=== PATIENT | female | born 1930 | race Caucasian/White ===

== ENCOUNTER 2019-01-12 11:03 | Inpatient (IN) ==
[2019-01-16] MEDS ORDERED: Acetaminophen 325 MG TABLET PO PRN (16:45)
[2019-01-16] MEDS ORDERED: Mag Hydrox/Al Hydrox/Simeth 30 ML UDC PO PRN (16:49)
[2019-01-16] MEDS: *HR* Rivaroxaban 15 MG TABLET PO SCH (19:06)
[2019-01-16] MEDS: Metoprolol XL (24 HR) Succ 50 MG TAB.ER.24H PO SCH (19:06)
[2019-01-16] MEDS: cephALEXin 500 MG CAPSULE PO SCH (20:51)
[2019-01-17 06:40] LABS: Basophils # 0.1 K/mcL (0.0-0.2); Basophils % 1.3 %; Eosinophils # 0.2 K/mcL (0.0-0.6); Eosinophils % 2.9 %; Hematocrit 44.1 % (35.3-44.9); Hemoglobin 14.7 g/dL (11.5-15.4); Immature Granulocytes % 0.3 % (0-4); Lymphocytes # 1.2 K/mcL (0.6-4.6); Mean Corpuscular HGB Conc 33.3 g/dL (31.6-35.5); Mean Corpuscular Hemoglobin 31.4 pg (28.0-33.3); Mean Corpuscular Volume 94.2 fL (83.0-100.0); Mean Platelet Volume 10.4 fL (9.4-12.4); Monocytes # 0.6 K/mcL (0.0-1.3); Monocytes % 9.4 %; Neutrophils # 4.1 K/mcL (1.6-8.9); Platelet Count 238 K/mcL (140-400); Red Blood Count 4.68 M/mcL (3.82-4.97); Red Cell Distribution Width 12.3 % (11.5-14.5); Segmented Neutrophils % 66.1 %
[2019-01-17 06:48] LABS: Alanine Aminotransferase 11 Units/L (7-52); Albumin 3.2 g/dL (3.5-5.7); Albumin/Globulin Ratio 0.9 (1.1-2.2); Alkaline Phosphatase 55 Units/L (34-104); Aspartate Amino Transferase 18 Units/L (13-39); BUN/Creatinine Ratio 17 (6-26); Bilirubin,Total 0.8 mg/dL (0.3-1.0); Blood Urea Nitrogen 18 mg/dL (8-23); Calcium 9.1 mg/dL (8.6-10.3); Carbon Dioxide 26 mEq/L (23-29); Chloride 106 mEq/L (98-107); Globulin 3.4 g/dL (2.4-3.5); Glucose 104 mg/dL (70-105); Osmolality,Calculated 288 (280-300); Potassium 4.3 mEq/L (3.5-5.1); Sodium 138 mEq/L (136-145); Total Protein 6.6 g/dL (6.4-8.9); eGFR For Non-African Americans 51 (> 60)
[2019-01-17] MEDS: Aspirin Enteric Coated 81 MG Tablet PO SCH (08:58)
[2019-01-17] MEDS: Diltiazem CD (24hr) 120 MG CAPSULE PO SCH (08:58)
[2019-01-17] MEDS: cephALEXin 500 MG CAPSULE PO SCH ×2 (08:58→20:27)
--- NOTE | 2019-01-17 13:32 | Internal Med History&Physical ---
Addendum entered and electronically signed by Beto Cruz MD 01/17/19 13:39: I have personally performed a face to face evaluation on this patient. I have r eviewed and agree with the care plan. History and Exam by me shows: Reviewed her course with her. She thinks that the stroke symptoms were about 3 days ago largely improved. She states that the stroke has affected her memory and vision. She is upset that she did not realize she was having a stroke. However, her weakness of left upper and lower extremities have improved markedly since her initial stroke. Visual changes have not. Have discussed with therapy, nursing, psychology. She may benefit from an antidepressant. Patient has no complaint of chest discomfort, dyspnea, orthopnea, breathing problems, palpitations, nausea or vomiting, constipation or diarrhea, other changes in bowel habits, heartburn, difficulty with urination, kidney problems or kidney stones, fevers chills or sweats, rash or itching, seizures, headache or lightheadedness, heat or cold intolerance, blood problems or anemia, or other new complaints, except as mentioned above. Review of systems is otherwise negative. Examination: (Except as mentioned above): General: In no apparent distress, alert and oriented 3. Head: Atraumatic and normocephalic. Eyes: Extraocular muscles are intact, pupils equal round and reactive to light and accommodation. Sclerae anicteric. Ears: External ears are normal to inspection and hearing is grossly normal. Nose: Patent without lesion noted. Mouth: No intraoral lesions seen. Dentition is unremarkable. Neck: Supple with trachea midline. There is no thyromegaly or adenopathy and carotids are 2+ without bruit heard. Respiratory: No use of accessory muscles. Lungs are clear throughout. Normal airflow. Cardiovascular: Regular rate and rhythm without murmur appreciated. Abdomen: Bowel sounds are normal. No hepatosplenomegaly masses or tenderness. Obese and therefore difficult to palpate deeply. Extremities: No cyanosis clubbing or edema. Neurological: A and O 3. Cranial nerves II through XII are intact. No focal motor deficits and no abnormal movements or postures. However, she has a left facial field cut which is pronounced and with it some agnosia. Skin: Warm and non-diaphoretic with no lesions noted. Breasts, pelvic and rectal: Not examined. I agree that her ophthalmology should be consulted because of her visual field changes. She will need several weeks of therapy, based on current assessment. Original Note: Date of Encounter: 01/17/19 Time of Encounter: 13:24 Assessment and Plan (1) CVA (cerebral vascular accident) Current visit: Yes Status: Acute PT, OT and ST to eval and treat. Will follow progress. Follow up with neurology as scheduled. Continue xarelto, asa and crestor. 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 continue xarelto, metoprolol and cardizem. Qualifiers: Atrial fibrillation type: chronic Qualified Code(s): I48.2 - Chronic atrial fibrillation Internal Medicine - H&P: HPI Admitted From: Hospital to Hospital Transfer Plans for Post Hospital Care: Home History of present illness: Ms. Hernandez is a 88 year old female admitted to inpatient rehab unit s/p bilat CVA. Patient was transferred from [facility] after arriving on 01/09/2019 with left-sided weakness, numbness, Tatum the shows an wobbly gait. Patient was not a candidate for TPA, due to symptoms improving. Tele stroke consult was performed with [facility]. Was found to have infarcts involving medial right occipital lobe, right thalamus, left lentiform nucleus, left cerebellum and right hippocampus Past medical history includes a fib with chronic anticoagulation, xarelto, and sinusitis. pt has left sided visual cut. Denies any new neurological deficits. Denies fever, chills, nausea vomiting or diarrhea. Denies headache, shortness of breath or chest pain. Patient is continent of bowel and bladder. Maintaining a ppetite and hydration. Prior to admission patient lived alone and was independent with all ADLs as well as driving. Past Med Surg Social Fam HX - Past Medical History Medical history: atrial fibrillation, CVA, TIA Additional medical history: uti Psychiatric history: no psych history - Past Surgical History Surgical History: no surgical history - Social History Smoking Status: Never smoker Smokeless Tobacco Status: No Alcohol use: none Drug use: none - Family History Mother Living Status: Hx Family Cardiac Disorders: No Hx Family Neurologic Disorders: No Father Living Status: Hx Family Cardiac Disorders: No Hx Family Neurologic Disorders: No Internal Medicine - H&P: Meds Metoprolol Succinate [Toprol Xl] 100 mg PO QPM 01/06/19 [History] Aspirin Enteric Coated [Aspirin EC] 81 mg PO DAILY 30 Days #30 tablet. 01/15/19 [Rx] Diltiazem CD (24hr) [Cardizem CD] 120 mg PO DAILY 30 Days #30 cap.er.24h 01/15/19 [Rx] Rivaroxaban [Xarelto] 15 mg PO 1700 30 Days #30 tablet 01/15/19 [Rx] Rosuvastatin [Crestor] 20 mg PO HS 30 Days #30 tablet 01/15/19 [Rx] Allergy/AdvReac Type Severity Reaction Status Date / Time nitrofurantoin Allergy Difficulty Verified 01/06/19 12:59 [From Macrodantin] Breathing All Systems PM: A 10-system review of systems was performed and is negative for pertinent findings except as documented above in the HPI. - Constitutional Constitutional: no chills, no fever(s), no night sweats - EENT Eyes: no change in vision, no discharge, no pain, no photophobia Ears: no ear discharge, no ear pain, no tinnitus Nose, mouth and throat: no dysphagia, no nasal discharge, no neck pain, no sore throat - Cardiovascular Cardiovascular ROS IM: no chest pain, no diaphoresis, no dyspnea, no lightheadedness, no palpitations, no syncope - Respiratory Respiratory: no cough, no dyspnea, no wheezing, no excessive phlegm production - Gastrointestinal Gastrointestinal: no abdominal pain, no diarrhea, no hematemesis, no hematochezia, no melena, no nausea, no vomiting - Genitourinary Genitourinary: no change in urinary stream, no dysuria, no flank pain, no hematuria - Musculoskeletal Musculoskeletal ROS IM: no numbness, no tingling - Integumentary Integumentary IM: no rash, no unusual bruising - Neurological Neurological ROS: no confusion, no convulsions, no focal weakness, no numbness, no tingling, no tremor(s) - Hematologic/Lymphatic Hematologic/Lymphatic: no easy bruising - Constitutional Vitals: Temp Pulse Resp BP Pulse Ox 97.6 F 93 18 126/67 96 03/06/19 07:32 01/17/19 07:32 01/17/19 07:32 01/17/19 07:32 01/17/19 07:32 General appearance: Present: cooperative, A&O X 3, pleasant, no acute distress, answers questions appropriately - Head Head exam: Present: atraumatic, normocephalic - Eye Eye exam: Present: PERRL, conjuntiva pink, sclera anicteric Pupils: Present: PERRL - Neck Neck exam general surgery: Present: supple, trachea midline. Absent: lymphadenopathy - Respiratory Respiratory exam: Present: CTAB. Absent: accessory muscle use, rales, rhonchi, wheezes - Cardiovascular Cardiovascular exam: Present: irregular rhythm, +S1, +S2. Absent: diastolic murmur, gallop, rubs, systolic murmur - GI/Abdominal GI/Abdominal exam: Present: normal bowel sounds, soft, no peritoneal signs. Absent: distended, tenderness - Extremities Exam Extremities exam: Present: warm, radial pulses palpable and symmetrical. Absent: calf tenderness, cyanotic, pedal edema - Neurological Exam Neurological exam: Present: CN II-XII intact, oriented X3, no focal deficits, strengths equal and symetr throughout. Absent: pronater drift, facial droop, speech deficit Additional comments: Left-sided visual cut - Skin Skin exam: Present: dry, intact Internal Med - H&P Results - Labs CBC & Chem 7: 01/17/19 05:55 01/17/19 05:55 Labs: Short CBC 01/17/19 Range/Units 05:55 WBC 6.2 (4.3-11.1) K/mcL Hgb 14.7 (11.5-15.4) g/dL Hct 44.1 (35.3-44.9) % Plt Count 238 (140-400) K/mcL Neutrophils # 4.1 (1.6-8.9) K/mcL BMP 01/17/19 05:55 Sodium 138 Potassium 4.3 Chloride 106 Carbon Dioxide 26 BUN 18 Creatinine 1.03 Glucose 104 Calcium 9.1 Liver Function 01/17/19 Range/Units 05:55 Total Bilirubin 0.8 (0.3-1.0) mg/dL AST 18 (13-39) Units/L ALT 11 (7-52) Units/L Alkaline Phosphatase 55 (34-104) Units/L Albumin 3.2 L (3.5-5.7) g/dL
--- NOTE | 2019-01-17 14:26 | Psychological Evaluation ---
Date of Encounter: 01/17/19 Time of Encounter: 11:30 History of Present Illness History of present illness: Ms. Hernandez is a 88 year old female admitted due to BiCVA. She thinks that the stroke symptoms were about 3 days ago largely improved. She states that the stroke has affected her memory and vision. She is upset that she did not realize she was having a stroke. However, her weakness of left upper and lower extremities have improved markedly since her initial stroke. Visual changes have not. Past Medical History - Psychiatric History Psychiatric history: Reports: no psych history Home Medications and Allergies Metoprolol Succinate [Toprol Xl] 100 mg PO QPM 01/06/19 [History] Aspirin Enteric Coated [Aspirin EC] 81 mg PO DAILY 30 Days #30 tablet.dr 01/15/19 [Rx] Diltiazem CD (24hr) [Cardizem CD] 120 mg PO DAILY 30 Days #30 cap.er.24h 01/15/19 [Rx] Rivaroxaban [Xarelto] 15 mg PO 1700 30 Days #30 tablet 01/15/19 [Rx] Rosuvastatin [Crestor] 20 mg PO HS 30 Days #30 tablet 01/15/19 [Rx] Allergy/AdvReac Type Severity Reaction Status Date / Time nitrofurantoin Allergy Difficulty Verified 01/06/19 12:59 [From Macrodantin] Breathing Social History - Social History Social History: 7 years ago. 65 years. 2 adult daughters and 1 lives next door. Lives alone and independent including driving. Attends sabianism and has [place] of friends she socialized with regularly. 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 Unsure when she retired. - Tobacco Use Smoking Status: Never smoker - Alcohol Use Alcohol Use: none - Drug Use Drug Use: none Cognitive/Emotional Assessment - Cognitive Ability Verbal Communication Ability: Verbal Expressive Ability Level of Alertness: Alert Memory Description: Remote Impaired, Immediate Impaired Orientation: Person, Place, Time, Name, Age, Date of , Day of Month Ability to Follow Directions: Good Speech Pattern: Normal rate Calculations: Able to spell WORLD backw Additional Findings: Able to recall 3/3 words immediately and 1/3 after 5min with category cue. $ digits forward and 3 backward; Knew pres but not previous pres or gov. Noted to use associations to cue memory. Question hearing - needed repetition of instructions. Visual neglect noted and gaze appeared "off". - Emotional Status Mood Description: Depressed, Anxious Affect Description: Full range, Tearful Coping Ability: Unsure about ability to cope Additional Findings: Concerned with emotional reaction to CVA. Stated she is "devastated" and angry she did not react quicker when she had first symptom. Assessment & Plan - Diagnosis (1) Adjustment disorder with mixed anxiety and depressed mood - Prognosis Prognosis: Good - Treatment Plan Treatment Plan/Recommendations: Will see weekly to assist in development and training of coping strategies for anxiety and depression as result of changes in function since CVA. Discussed anti-depressant medication with Physician. Procedures - Participants Therapy Participant: Patient - Session Time Session Start Time: 11:30 Session Stop Time: 12:00
[2019-01-17] MEDS: *HR* Rivaroxaban 15 MG TABLET PO SCH (17:47)
[2019-01-17] MEDS: Metoprolol XL (24 HR) Succ 50 MG TAB.ER.24H PO SCH (17:47)
[2019-01-18] MEDS: Diltiazem CD (24hr) 120 MG CAPSULE PO SCH (08:52)
[2019-01-18] MEDS: cephALEXin 500 MG CAPSULE PO SCH (08:52)
[2019-01-18] MEDS: Aspirin Enteric Coated 81 MG Tablet PO SCH (08:52)
--- NOTE | 2019-01-18 10:10 | Internal Med Progress Note ---
Addendum entered and electronically signed by Beto Cruz MD 01/18/19 12:58: It should be noted that omitted from exam, the patient's heart was irregularly irregular rhythm consistent with atrial fibrillation. Addendum entered and electronically signed by Beto Cruz MD 01/18/19 12:55: I have personally performed a face to face evaluation on this patient. I have reviewed and agree with the care plan. History and Exam by me shows: Patient again focuses on transient numbness and left upper extremity, yesterday. She has had none since. She forgot that she totally. I tried to reassure her and told her to keep us posted about these symptoms. She is concerned about privacy with bowel and bladder function but is otherwise having no issues with these. Discussed care with other providers and/or nursing. Patient has no complaint of chest discomfort, dyspnea, orthopnea, palpitations, nausea or vomiting, constipation or diarrhea, other changes in bowel habits, difficulty with urination, rash or itching, or other new complaints, except as mentioned above. Review of systems is otherwise negative. Examination: (Except as mentioned above): General: In no apparent distress. Alert and oriented 3. Nondiaphoretic. Head: Atraumatic and normocephalic. Respiratory: No use of accessory muscles. Lungs are clear throughout. Normal airflow. Cardiovascular: Regular rate and rhythm without murmur appreciated. Abdomen: Bowel sounds are normal. No hepatosplenomegaly mass or tenderness appreciated. Extremities: No cyanosis clubbing or edema. Skin: Warm and non-diaphoretic with no new lesions noted. Agree with their ophthalmology consultation and apparently this is in process per therapy. Original Note: Date of Encounter: 01/18/19 Time of Encounter: 10:10 - Assessment and plan (1) CVA (cerebral vascular accident) Current Visit: Yes Status: Acute Assessment and plan: No acute issues. Patient's neurological exam remains unchanged from her admission. Patient continues with slight left hemiparesis. Continued left visual cut. Patient continues to participate in physical therapy has been progressing well. Nursing and physical therapy state the patient continues to require cueing during multiple tasks such as taking medication and ADLs. Patient's conversation was appropriate during interview. We will continue to mobilize. Vital signs stable. 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 Patient's ventricular rate has been controlled less than 100. Patient continues on for anticoagulation. He denies any chest discomforts or palpitations. We will continue with current medications, to include Cardizem Qualifiers: Atrial fibrillation type: chronic Qualified Code(s): I48.2 - Chronic atrial fibrillation (3) Bacteriuria, asymptomatic Current Visit: No Status: Acute Assessment and plan: No acute issues. Patient recently treated for UTI. Remains afebrile and denies any dysuria. - Time Spent With Patient less than 15 minutes - Subjective Interval history: Patient appears relaxed and currently denies any discomforts or shortness of breath. Patient does state that yesterday evening she experienced some numbness to her left arm, which was similar to her stroke symptoms when she presented. Patient states that the numbness resolved. Patient states that physical therapy continues to progress for her. Nursing and therapy state patient continues to require cueing on multiple tasks such as ADLs. Patient does state she continues to have a left visual cut. - Constitutional Vitals: Temp Pulse Resp BP Pulse Ox 97.9 F 97 16 149/67 98 01/18/19 09:08 01/18/19 09:08 01/18/19 09:08 01/18/19 09:08 01/18/19 09:08 General appearance: Present: cooperative, A&O X 3, pleasant, no acute distress, answers questions appropriately - Head Head exam: Present: atraumatic, normocephalic - Eye Eye exam: Present: PERRL, conjuntiva pink, sclera anicteric Pupils: Present: PERRL - Neck Neck exam general surgery: Present: supple, trachea midline. Absent: lymphadenopathy - Respiratory Respiratory exam: Present: CTAB. Absent: accessory muscle use, rales, rhonchi, wheezes - Cardiovascular Cardiovascular exam: Present: RRR, +S1, +S2. Absent: diastolic murmur, gallop, rubs, systolic murmur - GI/Abdominal GI/Abdominal exam: Present: normal bowel sounds, soft, no peritoneal signs. Absent: distended, tenderness - Extremities Exam Extremities exam: Present: warm, radial pulses palpable and symmetrical. Absent: calf tenderness, cyanotic, pedal edema - Neurological Exam Neurological exam: Present: CN II-XII intact, oriented X3, no focal deficits. Absent: pronater drift, facial droop, speech deficit Additional comments: Patient continues with slight left hemiparesis with LUE at 4/5 both prox/distal for ext/flex. LLE shows slight weakness on HF at 4/5, but is 5/5 on MS distally. RE 5/5 MS. No paresthesia. Patient continues to have left field visual cut. Normal EOM - Skin Skin exam: Present: dry, intact Internal Medicine: Result - Labs CBC & Chem 7: 01/17/19 05:55 01/17/19 05:55 Consult Discharge Plan - Plan Referrals: Ehsan Malone MD [Primary Care Provider] -
[2019-01-18] MEDS: Metoprolol XL (24 HR) Succ 50 MG TAB.ER.24H PO SCH (18:02)
[2019-01-18] MEDS: *HR* Rivaroxaban 15 MG TABLET PO SCH (18:02)
[2019-01-19] MEDS: Aspirin Enteric Coated 81 MG Tablet PO SCH (08:23)
[2019-01-19] MEDS: Diltiazem CD (24hr) 120 MG CAPSULE PO SCH (08:23)
--- NOTE | 2019-01-19 11:55 | Internal Med Progress Note ---
Addendum entered and electronically signed by Beto Cruz MD 01/19/19 12:56: I have personally performed a face to face evaluation on this patient. I have r eviewed and agree with the care plan. History and Exam by me shows: Patient is without complaint. She wishes that things were better. She has been moving her bowels, well. She denies other problems. Discussed care with other providers and/or nursing. Patient has no complaint of chest discomfort, dyspnea, orthopnea, palpitations, nausea or vomiting, constipation or diarrhea, other changes in bowel habits, difficulty with urination, rash or itching, or other new complaints, except as m entioned above. Review of systems is otherwise negative. Examination: (Except as mentioned above): General: In no apparent distress. Alert and oriented 3. Nondiaphoretic. Head: Atraumatic and normocephalic. Respiratory: No use of accessory muscles. Lungs are clear throughout. Normal airflow. Cardiovascular: Regular rate and rhythm without murmur appreciated. Abdomen: Bowel sounds are normal. No hepatosplenomegaly mass or tenderness appreciated. Obese and therefore difficult to palpate deeply. Extremities: No cyanosis clubbing or edema. Skin: Warm and non-diaphoretic with no new lesions noted. Continue with therapies, as before. Agree with psychology assessment and will follow that way, as well. Original Note: Date of Encounter: 01/19/19 Time of Encounter: 11:52 - Assessment and plan (1) CVA (cerebral vascular accident) Current Visit: Yes Status: Acute Assessment and plan: No acute issues. Patient's neurological exam remains unchanged from her admission. Patient continues with slight left hemiparesis. Continued left visual cut and left neglect. Patient continues to participate in physical therapy has been progressing well. Nursing and physical therapy state the patient continues to require cueing during multiple tasks such as taking medication and ADLs. Patient's conversation was appropriate during interview. We will continue to mobilize. Vital signs stable. 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 Patient's ventricular rate has been controlled less than 100. Patient continues on for anticoagulation. He denies any chest discomforts or p alpitations. We will continue with current medications, to include Cardizem Qualifiers: Atrial fibrillation type: chronic Qualified Code(s): I48.2 - Chronic atrial fibrillation - Subjective Interval history: Patient appears relaxed and currently denies any discomforts or shortness of breath. Nursing states that patient continues to show signs of left neglect with being unable to use her left arm and was observed drifting to the left during ambulation and did not use her left arm to brace herself. Nursing and therapy state patient continues to require cueing on multiple tasks such as ADLs. Patient does state she continues to have a left visual cut. Patient voicing frustration in progress of PT/OT - Constitutional Vitals: Temp Pulse Resp BP Pulse Ox 98.0 F 77 16 132/84 94 01/19/19 06:52 01/19/19 06:52 01/19/19 06:52 01/19/19 06:52 01/19/19 06:52 General appearance: Present: cooperative, A&O X 3, pleasant, no acute distress, answers questions appropriately - Head Head exam: Present: atraumatic, normocephalic - Eye Eye exam: Present: PERRL, conjuntiva pink, sclera anicteric Pupils: Present: PERRL - Neck Neck exam general surgery: Present: supple, trachea midline. Absent: lymphadenopathy - Respiratory Respiratory exam: Present: CTAB. Absent: accessory muscle use, rales, rhonchi, wheezes - Cardiovascular Cardiovascular exam: Present: RRR, +S1, +S2. Absent: diastolic murmur, gallop, rubs, systolic murmur - GI/Abdominal GI/Abdominal exam: Present: normal bowel sounds, soft, no peritoneal signs. Absent: distended, tenderness - Extremities Exam Extremities exam: Present: warm, radial pulses palpable and symmetrical. Absent: calf tenderness, cyanotic, pedal edema - Neurological Exam Neurological exam: Present: CN II-XII intact, oriented X3. Absent: pronater drift, facial droop, speech deficit Additional comments: Patient continues to have slight left hemiparesis. LUE with 4/5 MS prox/dist on ext/flex. LLE shows 4/5 HF, but otherwise is +4/5. RE 5/5 MS. Noted Left visual cut and patient continues to show left neglect. - Skin Skin exam: Present: dry, intact Internal Medicine: Result - Labs CBC & Chem 7: 01/17/19 05:55 01/17/19 05:55 Consult Discharge Plan - Plan Referrals: Ehsan Malone MD [Primary Care Provider] -
[2019-01-19] MEDS: *HR* Rivaroxaban 15 MG TABLET PO SCH (18:47)
[2019-01-19] MEDS: Metoprolol XL (24 HR) Succ 50 MG TAB.ER.24H PO SCH (18:48)
[2019-01-20] MEDS: Aspirin Enteric Coated 81 MG Tablet PO SCH (08:12)
[2019-01-20] MEDS: Diltiazem CD (24hr) 120 MG CAPSULE PO SCH (08:13)
--- NOTE | 2019-01-20 11:55 | Internal Med Progress Note ---
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 Qualifiers: Atrial fibrillation type: chronic Qualified Code(s): I48.2 - Chronic atrial fibrillation (3) Adjustment disorder with mixed anxiety and depressed mood Current Visit: Yes Status: Acute Assessment and plan: Still with depressed affect. Will continue antidepressant. - Subjective Interval history: Patient is without complaint. She is pleased that things are still problematic but states that they are stable. Patient has no complaint of chest discomfort, dyspnea, orthopnea, palpitations, nausea or vomiting, constipation or diarrhea, other changes in bowel habits, difficulty with urination, rash or itching, or other new complaints, except as mentioned above. Review of systems is otherwise negative. I discussed management of her care with nursing staff. - Constitutional Vitals: Temp Pulse Resp BP Pulse Ox 97.7 F 82 14 141/81 96 01/20/19 07:00 01/20/19 07:00 01/19/19 19:47 01/20/19 07:00 01/20/19 07:00 Exam: Examination: (Except as mentioned above): General: In no apparent distress. Alert and oriented 3. Nondiaphoretic. Head: Atraumatic and normocephalic. Respiratory: No use of accessory muscles. Lungs are clear throughout. Normal airflow. Cardiovascular: Irregularly irregular with rate control. Abdomen: Bowel sounds are normal. No hepatosplenomegaly mass or tenderness appreciated. Extremities: No cyanosis clubbing or edema. Skin: Warm and non-diaphoretic with no new lesions noted. 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 Internal Medicine: Result - Labs CBC & Chem 7: 01/17/19 05:55 01/17/19 05:55 Consult Discharge Plan - Plan Referrals: Ehsan Malone MD [Primary Care Provider] -
[2019-01-20] MEDS: Metoprolol XL (24 HR) Succ 50 MG TAB.ER.24H PO SCH (17:27)
[2019-01-20] MEDS: *HR* Rivaroxaban 15 MG TABLET PO SCH (17:27)
[2019-01-21] MEDS: Aspirin Enteric Coated 81 MG Tablet PO SCH (09:17)
[2019-01-21] MEDS: Diltiazem CD (24hr) 120 MG CAPSULE PO SCH (09:17)
--- NOTE | 2019-01-21 17:30 | Internal Med Progress Note ---
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 I tried multiple times to see her and there are no acute issues, per nursing. I discussed management of her care with nursing staff. - Constitutional Vitals: Temp Pulse Resp BP Pulse Ox 97.7 F 75 16 142/91 94 01/21/19 07:00 01/21/19 07:00 01/21/19 07:00 01/21/19 07:00 01/21/19 07:00 Internal Medicine: Result - Labs CBC & Chem 7: 01/17/19 05:55 01/17/19 05:55 Consult Discharge Plan - Plan Referrals: Ehsan Malone MD [Primary Care Provider] -
[2019-01-21] MEDS: *HR* Rivaroxaban 15 MG TABLET PO SCH (17:55)
[2019-01-21] MEDS: Metoprolol XL (24 HR) Succ 50 MG TAB.ER.24H PO SCH (17:55)
[2019-01-21] MEDS: Melatonin 3 MG TABLET PO PRN (20:27)
[2019-01-22] MEDS: Diltiazem CD (24hr) 120 MG CAPSULE PO SCH (07:14)
[2019-01-22] MEDS: Aspirin Enteric Coated 81 MG Tablet PO SCH (07:14)
--- NOTE | 2019-01-22 13:43 | Internal Med Progress Note ---
Addendum entered and electronically signed by Beto Cruz MD 01/22/19 15:21: I have personally performed a face to face evaluation on this patient. I have r eviewed and agree with the care plan. History and Exam by me shows: Patient without complaint. She does not remember many things. She states her bowels are moving well, she thinks. Therapy meeting talked about her field cut and/or agnosia. We will move her bed so that the door is to her left and hopefully this will help her focus. Discussed care with other providers and/or nursing. Patient has no complaint of chest discomfort, dyspnea, orthopnea, palpitations, nausea or vomiting, constipation or diarrhea, other changes in bowel habits, difficulty with urination, rash or itching, or other new complaints, except as mentioned above. Review of systems is otherwise negative. Examination: (Except as mentioned above): General: In no apparent distress. Alert and oriented 3. Nondiaphoretic. Head: Atraumatic and normocephalic. Respiratory: No use of accessory muscles. Lungs are clear throughout. Normal airflow. Cardiovascular: Regular rate and rhythm without murmur appreciated. Abdomen: Bowel sounds are normal. No hepatosplenomegaly mass or tenderness appreciated. Obese and therefore difficult to palpate deeply. Extremities: No cyanosis clubbing or edema. Skin: Warm and non-diaphoretic with no new lesions noted. Original Note: Date of Encounter: 01/22/19 Time of Encounter: 13:41 - Assessment and plan (1) CVA (cerebral vascular accident) Current Visit: Yes Status: Acute Assessment and plan: Continue PT, OT, ST. Will follow progress. Follow up with neurology as scheduled. Has significant left-sided visual cut will consult Neuro- ophthalmologists. 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 Qualifiers: Atrial fibrillation type: chronic Qualified Code(s): I48.2 - Chronic atrial fibrillation - Time Spent With Patient less than 15 minutes - Subjective Interval history: Patient participating well with therapy, still has no initiation to perform ADLs. Has left-sided visual cut. Discussed following up with neuro- charging board operator. - Constitutional Vitals: Temp Pulse Resp BP Pulse Ox 97.7 F 61 15 123/77 95 01/22/19 09:08 01/22/19 09:08 01/22/19 09:08 01/22/19 09:08 01/22/19 09:08 General appearance: Present: cooperative, A&O X 3, pleasant, no acute distress, answers questions appropriately Exam: Left-sided visual cut - Head Head exam: Present: atraumatic, normocephalic - Eye Eye exam: Present: PERRL, conjuntiva pink, sclera anicteric Pupils: Present: PERRL - Neck Neck exam general surgery: Present: supple, trachea midline. Absent: lymphadenopathy - Respiratory Respiratory exam: Present: CTAB. Absent: accessory muscle use, rales, rhonchi, wheezes - Cardiovascular Cardiovascular exam: Present: RRR, +S1, +S2. Absent: diastolic murmur, gallop, rubs, systolic murmur - GI/Abdominal GI/Abdominal exam: Present: normal bowel sounds, soft, no peritoneal signs. Absent: distended, tenderness - Extremities Exam Extremities exam: Present: warm, radial pulses palpable and symmetrical. Absent: calf tenderness, cyanotic, pedal edema - Neurological Exam Neurological exam: Present: CN II-XII intact, oriented X3, no focal deficits. Absent: pronater drift, facial droop, speech deficit - Skin Skin exam: Present: dry, intact Internal Medicine: Result - Labs CBC & Chem 7: 01/17/19 05:55 01/17/19 05:55 Consult Discharge Plan - Plan Referrals: Ehsan Malone MD [Primary Care Provider] -
[2019-01-22] MEDS: *HR* Rivaroxaban 15 MG TABLET PO SCH (17:47)
[2019-01-22] MEDS: Metoprolol XL (24 HR) Succ 50 MG TAB.ER.24H PO SCH (17:47)
--- NOTE | 2019-01-22 20:35 | Physcial Medicine-Consult Note ---
Date of Encounter: 01/22/19 Time of Encounter: 20:08 Physical Medicine - AP (1) CVA (cerebral vascular accident) Status: Acute Assessment and plan: Doing well in therapies. The left visual field cut and left hemineglect are barriers for her to return to independent living. Team will likely recommend 24hr supervision for safety. I discussed this with her two daughters. The patient has extensive family support available so the family strongly favor [facility] her home instead of jail placement. Rehab nursing will assess her heart rate, skin, bowel, and bladder status and carry over therapy goals. Hospitalists will address her medical issues. PT will treat 1hr. daily for LE strengthening, coordination, transfers,mobility. OT will treat 1hr. daily for UE strengthening, coordination, ADLs. Speech will treat 1hr. daily for cognition, memory, visual field cut. The patient is an avid reader and would like to learn strategies to help her read. Goal will be home with family. ELOS 2-3wks. Rehab prognosis is fair with family support. Code(s): I63.9 - Cerebral infarction, unspecified SNOMED Code(s): 733069620 (2) Numbness of left hand Status: Resolved Assessment and plan: This was transient and has resolved. Code(s): R20.0 - Anesthesia of skin SNOMED Code(s): 473218770 Physical Medicine - HPI - Data of Consult Requesting Physician: Beto Cruz MD Primary Care Provider: Ehsan Malone MD - Consult Narrative History of present illness: Ms. Hernandez is a 88 year old RH female who suffered a bilateral posterior circulation CVA on01-08-2019. She had left sided weakness which has improved. She has a left visual field cut and left hemineglect. She denies swallowing problems but has developed loss of appetite, diarrhea, and abdominal discomfort. She denies loss of sensation on the left hemibody. CC: Beto Cruz MD Past Med Surg Social Fam HX - Past Medical History Attestation: Yes The following information was validated with the patient. Medical history: atrial fibrillation, CVA, TIA Additional medical history: uti Psychiatric history: no psych history - Past Surgical History Surgical History: no surgical history - Social History Smoking Status: Never smoker Smokeless Tobacco Status: No Alcohol use: none Drug use: none - Family History Mother Living Status: Hx Family Cardiac Disorders: No Hx Family Neurologic Disorders: No Father Living Status: Hx Family Cardiac Disorders: No Hx Family Neurologic Disorders: No Medications and Allergies Metoprolol Succinate [Toprol Xl] 100 mg PO QPM 01/06/19 [History] Aspirin Enteric Coated [Aspirin EC] 81 mg PO DAILY 30 Days #30 tablet.dr 01/15/19 [Rx] Diltiazem CD (24hr) [Cardizem CD] 120 mg PO DAILY 30 Days #30 cap.er.24h [Rx] Rivaroxaban [Xarelto] 15 mg PO 1700 30 Days #30 tablet 01/15/19 [Rx] Rosuvastatin [Crestor] 20 mg PO HS 30 Days #30 tablet 01/15/19 [Rx] Allergy/AdvReac Type Severity Reaction Status Date / Time nitrofurantoin Allergy Difficulty Verified 01/06/19 12:59 [From Macrodantin] Breathing All systems: reviewed and no additional remarkable complaints except as stated (HPI and PMH.) Physical Medicine - Exam - Constitutional Vitals: Temp Pulse Resp BP Pulse Ox 97.7 F 61 15 123/77 95 01/22/19 09:08 01/22/19 09:08 01/22/19 09:08 01/22/19 09:08 01/22/19 09:08 General appearance: average body habitus, cooperative, no acute distress - Head Head exam: Present: atraumatic, normocephalic - Eye Eye exam: Present: EOMI Additional comments: Left visual field is absent to 1.5" to the right of midline. - ENT ENT exam: Present: mucous membranes moist, normal oropharynx Additional comments: Tongue protrudes midline. - Neck Neck exam: Present: full ROM - Respiratory Respiratory exam: Present: CTAB - Cardiovascular Cardiovascular exam: Present: irregular rhythm, +S1, +S2 - GI/Abdominal GI/Abdominal exam: Present: hyperactive bowel sounds, soft - Extremities Exam Extremities exam: Present: full ROM. Absent: calf tenderness, pedal edema Additional comments: BUE and BLE strength 4+/5 - Neurological Exam Neurological exam: Present: abnormal gait, alert, CN II-XII intact, oriented X3. Absent: reflexes normal, pronater drift, facial droop Additional comments: No Albrecht or Babinski. Sensation intact. No pronator drift. Reflexes are absent all. - Psychiatric Psychiatric exam: Present: normal affect, normal mood - Skin Skin exam: Present: intact, normal color Physical Medicine - Results - Labs CBC & Chem 7: 01/17/19 05:55 01/17/19 05:55 Consult Discharge Plan - Plan Referrals: Ehsan Malone MD [Primary Care Provider] -
[2019-01-23] MEDS: Aspirin Enteric Coated 81 MG Tablet PO SCH (08:34)
[2019-01-23] MEDS: Diltiazem CD (24hr) 120 MG CAPSULE PO SCH (08:34)
--- NOTE | 2019-01-23 11:50 | Internal Med Progress Note ---
Addendum entered and electronically signed by Beto Cruz MD 01/23/19 14:03: I have personally performed a face to face evaluation on this patient. I have r eviewed and agree with the care plan. History and Exam by me shows: Patient is still of diminished affect but has no acute complaints. She states that she has had no bowel problems. Discussed care with other providers and/or nursing. Patient has no complaint of chest discomfort, dyspnea, orthopnea, palpitations, nausea or vomiting, constipation or diarrhea, other changes in bowel habits, difficulty with urination, rash or itching, or other new complaints, except as mentioned above. Review of systems is otherwise negative. Examination: (Except as mentioned above): General: In no apparent distress. Alert and oriented 3. Nondiaphoretic. Head: Atraumatic and normocephalic. Respiratory: No use of accessory muscles. Lungs are clear throughout. Normal airflow. Cardiovascular: Irregularly irregular consistent with atrial fibrillation but rate is controlled. Abdomen: Bowel sounds are normal. No hepatosplenomegaly mass or tenderness appreciated. . Extremities: No cyanosis clubbing or edema. Skin: Warm and non-diaphoretic with no new lesions noted. Original Note: Date of Encounter: 01/23/19 Time of Encounter: 11:49 - Assessment and plan (1) CVA (cerebral vascular accident) Current Visit: Yes Status: Acute Assessment and plan: Continue PT, OT, ST. Will follow progress. Follow up with neurology as scheduled. Has significant left-sided visual cut will consult Neuro- ophthalmologists. 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 Qualifiers: Atrial fibrillation type: chronic Qualified Code(s): I48.2 - Chronic atrial fibrillation - Time Spent With Patient less than 15 minutes - Subjective Interval history: Patient participating well with therapy, still has no initiation to perform ADLs. needs constant cueing to scan to the left. Has left-sided visual cut. denies any complaints at this time. maintaining appetite and hydratin. - Constitutional Vitals: Temp Pulse Resp BP Pulse Ox 98.2 F 81 15 117/64 95 01/23/19 09:40 01/23/19 09:40 01/23/19 09:40 01/23/19 09:40 01/23/19 09:40 General appearance: Present: cooperative, A&O X 3, pleasant, no acute distress, answers questions appropriately - Head Head exam: Present: atraumatic, normocephalic - Eye Eye exam: Present: PERRL, conjuntiva pink, sclera anicteric Pupils: Present: PERRL - Neck Neck exam general surgery: Present: supple, trachea midline. Absent: lymphadenopathy - Respiratory Respiratory exam: Present: CTAB. Absent: accessory muscle use, rales, rhonchi, wheezes - Cardiovascular Cardiovascular exam: Present: RRR, +S1, +S2. Absent: diastolic murmur, gallop, rubs, systolic murmur - GI/Abdominal GI/Abdominal exam: Present: normal bowel sounds, soft, no peritoneal signs. Absent: distended, tenderness - Extremities Exam Extremities exam: Present: warm, radial pulses palpable and symmetrical. Absent: calf tenderness, cyanotic, pedal edema - Neurological Exam Neurological exam: Present: CN II-XII intact, oriented X3, no focal deficits. Absent: pronater drift, facial droop, speech deficit - Skin Skin exam: Present: dry, intact Internal Medicine: Result - Labs CBC & Chem 7: 01/17/19 05:55 01/17/19 05:55 Consult Discharge Plan - Plan Referrals: Ehsan Malone MD [Primary Care Provider] -
[2019-01-23] MEDS: Metoprolol XL (24 HR) Succ 50 MG TAB.ER.24H PO SCH (16:58)
[2019-01-23] MEDS: *HR* Rivaroxaban 15 MG TABLET PO SCH (16:58)
[2019-01-24] MEDS: Diltiazem CD (24hr) 120 MG CAPSULE PO SCH (09:11)
[2019-01-24] MEDS: Aspirin Enteric Coated 81 MG Tablet PO SCH (09:11)
--- NOTE | 2019-01-24 09:36 | Internal Med Progress Note ---
Addendum entered and electronically signed by Beto Cruz MD 01/24/19 14:24: I have personally performed a face to face evaluation on this patient. I have r eviewed and agree with the care plan. History and Exam by me shows: I spoke with [facility] neuro-ophthalmology and they will not take a referral over the phone. For this reason, we faxed a prescription referral to them. The patient's daughters were surprised that she was on antidepressant. Dr. Reeves experienced this earlier today. I explained the fact that the patient had a mood which was markedly diminished on transfer. I explained the fact that her fatigue was possibly related to the stroke but that her mood was such that she would not benefit as well as hoped out of therapies. For this reason, we will continue the Lexapro and have them follow-up with family physician in 3-9 months, about possible discontinuation. They seem to find with this. Patient asked about something that we will give her left side stronger and more aware. We discussed the use of a ball or some other object with physical and later occupational therapy. Because of her agnosia, this will be attempted with a strap, etc. Discussed care with other providers and/or nursing. Patient has no complaint of chest discomfort, dyspnea, orthopnea, palpitations, nausea or vomiting, constipation or diarrhea, other changes in bowel habits, difficulty with urination, rash or itching, or other new complaints, except as mentioned above. Review of systems is otherwise negative. Examination: (Except as mentioned above): General: In no apparent distress. Alert and oriented 3. Nondiaphoretic. She still has a strong visual field cut and agnosia but is able to perform using her left upper extremity, without difficulty, upon cueing. Head: Atraumatic and normocephalic. Respiratory: No use of accessory muscles. Lungs are clear throughout. Normal airflow. Cardiovascular: Regular rate and rhythm with occasional ectopy. This might represent atrial fibrillation. It has in the past. Abdomen: Bowel sounds are normal. No hepatosplenomegaly mass or tenderness appreciated. Patient is examined upright in chair and this also limits exam. Extremities: No cyanosis clubbing or edema. Skin: Warm and non-diaphoretic with no new lesions noted. Original Note: Date of Encounter: 01/24/19 Time of Encounter: 09:34 - Assessment and plan (1) CVA (cerebral vascular accident) Current Visit: Yes Status: Acute Assessment and plan: No acute issues. Patient's neurological exam remains unchanged from her ad mission. Patient with improved left hemiparesis. Continued left visual cut and left neglect. Patient continues to participate in physical therapy has been progressing well. Nursing and physical therapy state the patient continues to require cueing during multiple tasks such as taking medication and ADLs. Patient's conversation was appropriate during interview. We will continue to mobilize. Vital signs stable. 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 Patient's ventricular rate has been controlled less than 100. Patient continues on for anticoagulation. He denies any chest discomforts or palpitations. We will continue with current medications, to include Cardizem Qualifiers: Atrial fibrillation type: chronic Qualified Code(s): I48.2 - Chronic atrial fibrillation - Time Spent With Patient less than 15 minutes - Subjective Interval history: Patient appears relaxed and currently denies any discomforts or shortness of breath. Nursing states that patient continues to show signs of left neglect. Patient does state she continues to have a left visual cut. Patient voicing frustration in progress of PT/OT - Constitutional Vitals: Temp Pulse Resp BP Pulse Ox 97.8 F 73 18 135/84 96 01/24/19 07:03 01/24/19 07:03 01/24/19 07:03 01/24/19 07:03 01/24/19 07:03 General appearance: Present: cooperative, A&O X 3, pleasant, no acute distress, answers questions appropriately - Head Head exam: Present: atraumatic, normocephalic - Eye Eye exam: Present: PERRL, conjuntiva pink, sclera anicteric Pupils: Present: PERRL - Neck Neck exam general surgery: Present: supple, trachea midline. Absent: lymphadenopathy - Respiratory Respiratory exam: Present: CTAB. Absent: accessory muscle use, rales, rhonchi, wheezes - Cardiovascular Cardiovascular exam: Present: irregular rhythm, RRR, +S1, +S2. Absent: diastolic murmur, gallop, rubs, systolic murmur - GI/Abdominal GI/Abdominal exam: Present: normal bowel sounds, soft, no peritoneal signs. Absent: distended, tenderness - Extremities Exam Extremities exam: Present: warm, radial pulses palpable and symmetrical. Ab sent: calf tenderness, cyanotic, pedal edema - Neurological Exam Neurological exam: Present: CN II-XII intact, oriented X3. Absent: pronater drift, facial droop, speech deficit Additional comments: Patient continues to show left neglect, but has been improving since my last exam one week ago. Patient continues to have left visual cut, but otherwise vision acuity on the right appears normal. Normal EOM. Patient continues to have required cueing for most ADLs and continues to show some difficulty with short-term memory recall. Otherwise no acute neurological deficits have been noted. - Skin Skin exam: Present: dry, intact Internal Medicine: Result - Labs CBC & Chem 7: 01/17/19 05:55 01/17/19 05:55 Consult Discharge Plan - Plan Referrals: Ehsan Malone MD [Primary Care Provider] -
--- NOTE | 2019-01-24 13:16 | Rehab Psychology Progress Note ---
Date of Encounter: 01/24/19 Time of Encounter: 11:00 Subjective - Patient Report Patient Report: Pt was seen with both daughters. She expressed fatigue and poor appetite along with some confusion with perceiving daily events. Daughters stated this is a new issue for the family, never experienced strokes. Pt expressed concern that she could have caused the CVA by medication and/or not calling 911 when experienced symptoms. Pt was tearful and stated she had fear and hopelessness. Daughters expressed concern that mother was in street clothes and not pj's at end of day thus they were having to change her at bedtime. Objective - WHODAS Functional Impairment Concentration, Problem-solving, Communication: Moderate Self-Care: Moderate Social Functioning: Moderate - Comments Functional Status Comments: Issues identified with appetite, fatigue, mood, field cuts, memory/attention, perception, and recovery. Discussed current anti depressant. Discussed recovery - most change 3-9 months and need to get sleep, nutrients, and manage stressors. - Mental Status Mental Status Changes: Appeared more fatigued at session onset but became engaged during session and interacted. Tearful with situation and need to now focus on self vs others. Assessment and Plan - Diagnosis (1) Adjustment disorder with mixed anxiety and depressed mood - Response to Treatment Response to Treatment: Improved - Prognosis Prognosis: Good - Treatment Plan Treatment Plan Recommendations: Continue Current Plan/Goals Next Session Date: 01/31/19 Procedures - Intervention Interventions: Cognitive/Behavioral Therapy - Modality Modality: Psychotherapy 60 minutes - Participants Therapy Participant: Patient, Family - Session Time Session Start Time: 11:00 Session Stop Time: 12:00
[2019-01-24] MEDS: Metoprolol XL (24 HR) Succ 50 MG TAB.ER.24H PO SCH (17:02)
[2019-01-24] MEDS: *HR* Rivaroxaban 15 MG TABLET PO SCH (17:02)
--- NOTE | 2019-01-24 17:03 | Physical Med Progress Note ---
Date of Encounter: 01/24/19 Time of Encounter: 15:30 Assessment and Plan (1) CVA (cerebral vascular accident) Current Visit: Yes Status: Acute Assessment and plan: Slow but steady progress. I think her brain is healing. Continue all therapies as directed. Continue Rehab Psychology. Add Ensure shakes. 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 Still not hungry. Likes ensure shakes. No further diarrhea or stomach upset. Does not remember if she's had a BM since the diarrhea early Tuesday morning. She is able to play and win a fairly complex card game with her daughter that she couldn't complete 2 days ago. - Constitutional Vitals: Vital Signs Temp Pulse Resp BP Pulse Ox 01/24/19 07:03 97.8 F 73 18 135/84 96 01/23/19 19:10 98.0 F 75 17 124/81 95 Intake and Output 01/24/19 01/24/19 01/24/19 07:59 15:59 23:59 Intake Total 300 / 300 600 / 600 Balance 300 / 300 600 / 600 Intake: Oral 300 / 300 600 / 600 Other: Meal Lunch Percent of Meal Consumed 100% # Voids 1 2 General appearance: cooperative, no acute distress, thin - Head Head exam: Present: atraumatic, normocephalic - Neurological Exam Neurological exam: Present: abnormal gait, alert, CN II-XII intact, oriented X3, strengths equal and symetr throughout. Absent: pronater drift, speech deficit Additional comments: Left hemanopsia is about the same. Left hemineglect and left visual spatial impairment increases with increasing complexith of activity. She loses her midline orientation during ambulation. She requires multiple cues to attend and initiate with her left hemibody during tasks. - Psychiatric Additional comments: Rehab Psychology reports pt. has adjustment disorder with depressed mood. She has been on Lexapro for 7 days now. She is receiving counseling. Daughters are aware. Physical Medicine-PN: Obj Data - Labs CBC & Chem 7: 01/17/19 05:55 01/17/19 05:55 Consult Discharge Plan - Plan Referrals: Ehsan Malone MD [Primary Care Provider] -
[2019-01-24] MEDS: Melatonin 3 MG TABLET PO PRN (19:50)
[2019-01-25] MEDS: Diltiazem CD (24hr) 120 MG CAPSULE PO SCH (08:21)
[2019-01-25] MEDS: Aspirin Enteric Coated 81 MG Tablet PO SCH (08:21)
--- NOTE | 2019-01-25 10:28 | Internal Med Progress Note ---
Addendum entered and electronically signed by Beto Cruz MD 01/25/19 12:16: I have personally performed a face to face evaluation on this patient. I have r eviewed and agree with the care plan. History and Exam by me shows: Patient without complaint. Her affect is still flat but slightly better than before. She denies bowel or bladder problems or other acute issues. Discussed care with other providers and/or nursing. Patient has no complaint of chest discomfort, dyspnea, orthopnea, palpitations, nausea or vomiting, constipation or diarrhea, other changes in bowel habits, difficulty with urination, rash or itching, or other new complaints, except as mentioned above. Review of systems is otherwise negative. Examination: (Except as mentioned above): General: In no apparent distress. Alert and oriented 3. Nondiaphoretic. Head: Atraumatic and normocephalic. Respiratory: No use of accessory muscles. Lungs are clear throughout. Normal airflow. Cardiovascular: Irregularly irregular consistent with atrial fibrillation but rate is controlled. Abdomen: Bowel sounds are normal. No hepatosplenomegaly mass or tenderness appreciated. Extremities: No cyanosis clubbing or edema. Skin: Warm and non-diaphoretic with no new lesions noted. Original Note: Date of Encounter: 01/25/19 Time of Encounter: 10:26 - Assessment and plan (1) CVA (cerebral vascular accident) Current Visit: Yes Status: Acute Assessment and plan: No acute issues. Patient's neurological exam remains unchanged from her admission. Patient with improved left hemiparesis. Continued left visual cut and left neglect. Patient continues to participate in physical therapy has been progressing well. Nursing and physical therapy state the patient continues to require cueing during multiple tasks such as taking medication and ADLs. Patient's conversation was appropriate during interview. We will continue to mobilize. Vital signs stable. 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 Patient's ventricular rate has been controlled less than 100. Patient continues on for anticoagulation. He denies any chest discomforts or palpitations. We will continue with current medications, to include Cardizem Qualifiers: Atrial fibrillation type: chronic Qualified Code(s): I48.2 - Chronic atrial fibrillation - Time Spent With Patient less than 15 minutes - Subjective Interval history: Patient appears relaxed and currently denies any discomforts or shortness of breath. Nursing states that patient continues to show signs of left neglect. Patient does state she continues to have a complete left visual cut. Patient voicing frustration in progress of PT/OT. No acute issues reported from Nx or therapy - Constitutional Vitals: Temp Pulse Resp BP Pulse Ox 98.1 F 74 16 113/75 100 01/25/19 06:56 01/25/19 06:56 01/25/19 06:56 01/25/19 06:56 01/25/19 06:56 General appearance: Present: cooperative, A&O X 3, pleasant, no acute distress, answers questions appropriately - Head Head exam: Present: atraumatic, normocephalic - Eye Eye exam: Present: PERRL, conjuntiva pink, sclera anicteric Pupils: Present: PERRL - Neck Neck exam general surgery: Present: supple, trachea midline. Absent: lym phadenopathy - Respiratory Respiratory exam: Present: CTAB. Absent: accessory muscle use, rales, rhonchi, wheezes - Cardiovascular Cardiovascular exam: Present: RRR, +S1, +S2. Absent: diastolic murmur, gallop, rubs, systolic murmur - GI/Abdominal GI/Abdominal exam: Present: normal bowel sounds, soft, no peritoneal signs. Absent: distended, tenderness - Extremities Exam Extremities exam: Present: warm, radial pulses palpable and symmetrical. Absent: calf tenderness, cyanotic, pedal edema - Neurological Exam Neurological exam: Present: CN II-XII intact, oriented X3. Absent: pronater drift, facial droop, speech deficit Additional comments: Patient continues to show left neglect and also loss of vision to left eye. Patient shows very mild left hemiparesis with left extremities and +4/5. Patient's right extremities at 5/5 muscle strength. - Skin Skin exam: Present: dry, intact Internal Medicine: Result - Labs CBC & Chem 7: 01/17/19 05:55 01/17/19 05:55 Consult Discharge Plan - Plan Referrals: Ehsan Malone MD [Primary Care Provider] -
[2019-01-25 11:18] LABS: Basophils # 0.1 K/mcL (0.0-0.2); Basophils % 1.2 %; Eosinophils # 0.1 K/mcL (0.0-0.6); Eosinophils % 1.3 %; Immature Granulocytes % 0.3 % (0-4); Lymphocytes # 1.3 K/mcL (0.6-4.6); Lymphocytes % 21.1 %; Mean Corpuscular HGB Conc 33.3 g/dL (31.6-35.5); Mean Corpuscular Hemoglobin 31.4 pg (28.0-33.3); Mean Corpuscular Volume 94.1 fL (83.0-100.0); Mean Platelet Volume 10.6 fL (9.4-12.4); Monocytes # 0.5 K/mcL (0.0-1.3); Neutrophils # 4.1 K/mcL (1.6-8.9); Platelet Count 261 K/mcL (140-400); Red Blood Count 4.78 M/mcL (3.82-4.97); Red Cell Distribution Width 12.2 % (11.5-14.5); Segmented Neutrophils % 68.1 %
[2019-01-25 11:29] LABS: Albumin 3.8 g/dL (3.5-5.7); Albumin/Globulin Ratio 1.1 (1.1-2.2); Bilirubin,Total 0.9 mg/dL (0.3-1.0); Calcium 9.9 mg/dL (8.6-10.3); Globulin 3.6 g/dL (2.4-3.5); Potassium 4.2 mEq/L (3.5-5.1); Total Protein 7.4 g/dL (6.4-8.9)
[2019-01-25] MEDS: Metoprolol XL (24 HR) Succ 50 MG TAB.ER.24H PO SCH (18:36)
[2019-01-25] MEDS: *HR* Rivaroxaban 15 MG TABLET PO SCH (18:36)
[2019-01-25] MEDS: Melatonin 3 MG TABLET PO PRN (21:13)
[2019-01-26] MEDS: Diltiazem CD (24hr) 120 MG CAPSULE PO SCH (08:31)
[2019-01-26] MEDS: Aspirin Enteric Coated 81 MG Tablet PO SCH (08:31)
--- NOTE | 2019-01-26 13:33 | Internal Med Progress Note ---
Date of Encounter: 01/26/19 Time of Encounter: 13:30 - Assessment and plan (1) CVA (cerebral vascular accident) Current Visit: Yes Status: Acute Assessment and plan: We will continue therapies as planned. Agnosia and left field cut, as before. Neuro-ophthalmology consult has been requested. 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 Qualifiers: Atrial fibrillation type: chronic Qualified Code(s): I48.2 - Chronic atrial fibrillation (3) Adjustment disorder with mixed anxiety and depressed mood Current Visit: Yes Status: Acute Assessment and plan: Still with depressed affect. Will continue antidepressant. She is now nearly 2 weeks on Lexapro. She seems to have improved mood in the last 2 days or so. - Subjective Interval history: Patient is "feeling well today." Her mood seems to have improved. She denies acute problems. She asked that I explained her stroke to her son, which I did. She denies acute problems and is moving her bowels and working well with her bladder, as far she knows. We discussed her increased creatinine and the need for her to increase her intake of fluids which she says she will do. Patient has no complaint of chest discomfort, dyspnea, orthopnea, palpitations, nausea or vomiting, constipation or diarrhea, other changes in bowel habits, difficulty with urination, rash or itching, or other new complaints, except as mentioned above. Review of systems is otherwise negative. I discussed management of her care with nursing staff.f. - Constitutional Vitals: Temp Pulse Resp BP Pulse Ox 97.7 F 75 16 127/85 95 01/26/19 06:00 01/26/19 06:00 01/26/19 06:00 01/26/19 06:00 01/26/19 06:00 Exam: Examination: (Except as mentioned above): General: In no apparent distress. Alert and oriented 3. Nondiaphoretic. Head: Atraumatic and normocephalic. Respiratory: No use of accessory muscles. Lungs are clear throughout. Normal airflow. Cardiovascular: Irregularly irregular with rate controlled, consistent with atrial fib. Abdomen: Bowel sounds are normal. No hepatosplenomegaly mass or tenderness appreciated. Obese and therefore difficult to palpate deeply. Patient is examined upright in chair and this also limits exam. Extremities: No cyanosis clubbing or edema. Skin: Warm and non-diaphoretic with no new lesions noted. Internal Medicine: Result - Labs CBC & Chem 7: 01/25/19 11:10 01/25/19 11:10 Consult Discharge Plan - Plan Referrals: Ehsan Malone MD [Primary Care Provider] -
[2019-01-26] MEDS: *HR* Rivaroxaban 15 MG TABLET PO SCH (17:34)
[2019-01-26] MEDS: Metoprolol XL (24 HR) Succ 50 MG TAB.ER.24H PO SCH (17:34)
[2019-01-27] MEDS: Diltiazem CD (24hr) 120 MG CAPSULE PO SCH (08:45)
[2019-01-27] MEDS: Aspirin Enteric Coated 81 MG Tablet PO SCH (08:45)
--- NOTE | 2019-01-27 09:14 | Internal Med Progress Note ---
Date of Encounter: 01/27/19 Time of Encounter: 09:12 - Assessment and plan (1) CVA (cerebral vascular accident) Current Visit: Yes Status: Acute Assessment and plan: weakness on her left side , getting rehab and seems to be doing better and improving . She is able to manage and eat without any difficulty or choking . Continue to monitor and provide rehab. 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 (2) Atrial fibrillation Current Visit: Yes Status: Chronic Assessment and plan: Heart rate is stable on Xeralto stable Qualifiers: Atrial fibrillation type: chronic Qualified Code(s): I48.2 - Chronic atrial fibrillation - Subjective Interval history: Cross coverage seen in the dinning stringer no acute issues seems to be responding well and answers appropriately she has a flat affect She deniens any fever or chills no thoughts or dyeing or hurting her self - Constitutional Vitals: Temp Pulse Resp BP Pulse Ox 97.7 F 84 16 105/64 97 01/27/19 07:00 01/27/19 08:51 01/27/19 07:00 01/27/19 08:51 01/27/19 07:00 General appearance: Present: cooperative, A&O X 3, pleasant, no acute distress, answers questions appropriately - Head Head exam: Present: atraumatic - Eye Eye exam: Present: PERRL. Absent: scleral icterus - Neck Neck exam general surgery: Present: supple. Absent: tenderness, nuchal rigidity - Respiratory Respiratory exam: Present: CTAB. Absent: respiratory distress, rhonchi, stridor, wheezes, tachypnea - Cardiovascular Cardiovascular exam: Present: irregular rhythm, +S1, +S2, systolic murmur Additional comments: systolic murmer at aortic area no radiation noted mild mummer at the apex , heaving of apex noted as well - GI/Abdominal GI/Abdominal exam: Present: normal bowel sounds, soft. Absent: diminished bowel sounds, distended, firm, guarding, rigid, splenomegaly, tenderness, no peritoneal signs - Extremities Exam Extremities exam: Absent: pedal edema, tenderness - Neurological Exam Neurological exam: Present: alert, CN II-XII intact. Absent: pronater drift, facial droop, speech deficit Additional comments: Some weakness on left arm and legs noted , no apparent cranial nerves deficit noted . I didn't notice any left neglect however she had a flat affect Internal Medicine: Result - Labs CBC & Chem 7: 01/25/19 11:10 01/25/19 11:10 Consult Discharge Plan - Plan Referrals: Ehsan Malone MD [Primary Care Provider] -
[2019-01-27] MEDS: *HR* Rivaroxaban 15 MG TABLET PO SCH (16:10)
[2019-01-27] MEDS: Metoprolol XL (24 HR) Succ 50 MG TAB.ER.24H PO SCH (16:10)
--- NOTE | 2019-01-28 08:32 | Internal Med Progress Note ---
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 (2) Atrial fibrillation Current Visit: Yes Status: Chronic Assessment and plan: no new issues heart rate is stable On anticoagulation stable no bleeding Qualifiers: Atrial fibrillation type: chronic Qualified Code(s): I48.2 - Chronic atrial fibrillation - Subjective Interval history: Cross coverage slept well no acute issues at the present time denies any pain SOB or any other complains - Constitutional Vitals: Temp Pulse Resp BP Pulse Ox 98.7 F 65 16 135/78 96 01/28/19 07:00 01/28/19 07:00 01/28/19 07:00 01/28/19 07:00 01/28/19 07:00 General appearance: Present: cooperative, A&O X 3, pleasant, no acute distress, answers questions appropriately - Head Head exam: Present: atraumatic - Eye Eye exam: Absent: PERRL Pupils: Absent: PERRL - Neck Neck exam general surgery: Present: supple. Absent: tenderness, nuchal rigidity - Respiratory Respiratory exam: Present: CTAB. Absent: respiratory distress, rhonchi, stridor, wheezes - Cardiovascular Cardiovascular exam: Present: irregular rhythm, +S1, +S2, systolic murmur Additional comments: stable heart rate - GI/Abdominal GI/Abdominal exam: Present: soft. Absent: distended, guarding, rebound, tenderness - Neurological Exam Neurological exam: Present: CN II-XII intact, oriented X3. Absent: facial droop, speech deficit Additional comments: weakness left arm and legs as before Internal Medicine: Result - Labs CBC & Chem 7: 01/25/19 11:10 01/25/19 11:10 Consult Discharge Plan - Plan Referrals: Ehsan Malone MD [Primary Care Provider] -
[2019-01-28] MEDS: Aspirin Enteric Coated 81 MG Tablet PO SCH (09:24)
[2019-01-28] MEDS: Diltiazem CD (24hr) 120 MG CAPSULE PO SCH (09:24)
[2019-01-28] MEDS: *HR* Rivaroxaban 15 MG TABLET PO SCH (17:00)
[2019-01-28] MEDS: Metoprolol XL (24 HR) Succ 50 MG TAB.ER.24H PO SCH (17:00)
[2019-01-28] MEDS: Melatonin 3 MG TABLET PO PRN (20:20)
[2019-01-29] MEDS: Diltiazem CD (24hr) 120 MG CAPSULE PO SCH (08:12)
[2019-01-29] MEDS: Aspirin Enteric Coated 81 MG Tablet PO SCH (08:13)
[2019-01-29 11:33] LABS: Calcium 9.9 mg/dL (8.6-10.3); Potassium 4.4 mEq/L (3.5-5.1)
--- NOTE | 2019-01-29 13:04 | Internal Med Progress Note ---
Addendum entered and electronically signed by Beto Cruz MD 01/29/19 14:46: I have personally performed a face to face evaluation on this patient. I have r eviewed and agree with the care plan. History and Exam by me shows: Patient is without complaint. She notes that earlier she had some queasiness of her stomach this is now past. She denies bowel or bladder problems, abdominal pain, etc. Discussed care with other providers and/or nursing. Patient has no complaint of chest discomfort, dyspnea, orthopnea, palpitations, nausea or vomiting, constipation or diarrhea, other changes in bowel habits, difficulty with urination, rash or itching, or other new complaints, except as mentioned above. Review of systems is otherwise negative. Examination: (Except as mentioned above): General: In no apparent distress. Alert and oriented 3. Nondiaphoretic. Head: Atraumatic and normocephalic. Respiratory: No use of accessory muscles. Lungs are clear throughout. Normal airflow. Cardiovascular: Irregularly irregular without murmur appreciated. Abdomen: Bowel sounds are normal. No hepatosplenomegaly mass or tenderness appreciated. Extremities: No cyanosis clubbing or edema. Skin: Warm and non-diaphoretic with no new lesions noted. Original Note: Date of Encounter: 01/29/19 Time of Encounter: 13:03 - Assessment and plan (1) CVA (cerebral vascular accident) Current Visit: Yes Status: Acute Assessment and plan: Continue PT, OT, ST. Will follow progress. Follow up with neurology as scheduled. Has significant left-sided visual cut will consult Neuro- ophthalmologists. 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 Qualifiers: Atrial fibrillation type: chronic Qualified Code(s): I48.2 - Chronic atrial fibrillation - Time Spent With Patient less than 15 minutes - Subjective Interval history: Patient participating well with therapy. continues to need cues to scan to the left. Has left-sided visual cut. denies any complaints at this time. decrease in appetite but maintaining hydration. - Constitutional Vitals: Temp Pulse Resp BP Pulse Ox 98.0 F 70 15 146/82 95 01/29/19 07:36 01/29/19 07:36 01/29/19 07:36 01/29/19 07:36 01/29/19 07:36 General appearance: Present: cooperative, A&O X 3, pleasant, no acute distress, answers questions appropriately - Head Head exam: Present: atraumatic, normocephalic - Eye Eye exam: Present: PERRL, conjuntiva pink, sclera anicteric Pupils: Present: PERRL - Neck Neck exam general surgery: Present: supple, trachea midline. Absent: lymphadenopathy - Respiratory Respiratory exam: Present: CTAB. Absent: accessory muscle use, rales, rhonchi, wheezes - Cardiovascular Cardiovascular exam: Present: RRR, +S1, +S2. Absent: diastolic murmur, gallop, rubs, systolic murmur - GI/Abdominal GI/Abdominal exam: Present: normal bowel sounds, soft, no peritoneal signs. Absent: distended, tenderness - Extremities Exam Extremities exam: Present: warm, radial pulses palpable and symmetrical. Absent: calf tenderness, cyanotic, pedal edema - Neurological Exam Neurological exam: Present: CN II-XII intact, oriented X3, no focal deficits. Absent: pronater drift, facial droop, speech deficit - Skin Skin exam: Present: dry, intact Internal Medicine: Result - Labs CBC & Chem 7: 01/25/19 11:10 01/29/19 11:08 Labs: BMP 01/29/19 11:08 Sodium 138 Potassium 4.4 Chloride 103 Carbon Dioxide 28 BUN 23 Creatinine 1.17 Glucose 152 H Calcium 9.9 Consult Discharge Plan - Plan Referrals: Ehsan Malone MD [Primary Care Provider] -
[2019-01-29] MEDS: *HR* Rivaroxaban 15 MG TABLET PO SCH (18:45)
[2019-01-29] MEDS: Metoprolol XL (24 HR) Succ 50 MG TAB.ER.24H PO SCH (18:46)
[2019-01-30] MEDS: Aspirin Enteric Coated 81 MG Tablet PO SCH (09:08)
[2019-01-30] MEDS: Diltiazem CD (24hr) 120 MG CAPSULE PO SCH (09:08)
--- NOTE | 2019-01-30 13:59 | Internal Med Progress Note ---
Addendum entered and electronically signed by Beto Cruz MD 01/31/19 12:53: I have personally performed a face to face evaluation on this patient. I have r eviewed and agree with the care plan. History and Exam by me shows: Patient is without complaint. Family asked about her neuro-ophthalmology referral and I told him we have not heard from them. Bowels and bladder are functioning well. Discussed care with other providers and/or nursing. Patient has no complaint of chest discomfort, dyspnea, orthopnea, palpitations, nausea or vomiting, constipation or diarrhea, other changes in bowel habits, difficulty with urination, rash or itching, or other new complaints, except as mentioned above. Review of systems is otherwise negative. Examination: (Except as mentioned above): General: In no apparent distress. Alert and oriented 3. Nondiaphoretic. Mood is decidedly better. Head: Atraumatic and normocephalic. Respiratory: No use of accessory muscles. Lungs are clear throughout. Normal airflow. Cardiovascular: Regular rate and rhythm without murmur appreciated. Abdomen: Bowel sounds are normal. No hepatosplenomegaly mass or tenderness appreciated. Obese and therefore difficult to palpate deeply. Extremities: No cyanosis clubbing or edema. Skin: Warm and non-diaphoretic with no new lesions noted. Her agnosia seems slightly improved to me and I told her of same. Original Note: Date of Encounter: 01/30/19 Time of Encounter: 13:57 - Assessment and plan (1) CVA (cerebral vascular accident) Current Visit: Yes Status: Acute Assessment and plan: Continue PT, OT, ST. Will follow progress. Follow up with neurology as scheduled. Has significant left-sided visual cut will consult Neuro- ophthalmologists. 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 Qualifiers: Atrial fibrillation type: chronic Qualified Code(s): I48.2 - Chronic atrial fibrillation - Time Spent With Patient less than 15 minutes - Subjective Interval history: Patient participating well with therapy. continues to need cues to scan to the left. Has left-sided visual cut. denies any complaints at this time. decrease in appetite but maintaining hydration. denies any concerns or issues at this time. getting rest breaks in between therapy sessions. family meeting today. - Constitutional Vitals: Temp Pulse Resp BP Pulse Ox 98.0 F 63 15 132/72 94 01/30/19 07:38 01/30/19 07:38 01/30/19 07:38 01/30/19 07:38 01/30/19 07:38 General appearance: Present: cooperative, A&O X 3, pleasant, no acute distress, answers questions appropriately - Head Head exam: Present: atraumatic, normocephalic - Eye Eye exam: Present: PERRL, conjuntiva pink, sclera anicteric Pupils: Present: PERRL Additional comments: left visual field cut. - Neck Neck exam general surgery: Present: supple, trachea midline. Absent: lymphadenopathy - Respiratory Respiratory exam: Present: CTAB. Absent: accessory muscle use, rales, rhonchi, wheezes - Cardiovascular Cardiovascular exam: Present: RRR, +S1, +S2. Absent: diastolic murmur, gallop, rubs, systolic murmur - GI/Abdominal GI/Abdominal exam: Present: normal bowel sounds, soft, no peritoneal signs. Absent: distended, tenderness - Extremities Exam Extremities exam: Present: warm, radial pulses palpable and symmetrical. Absent: calf tenderness, cyanotic, pedal edema - Neurological Exam Neurological exam: Present: CN II-XII intact, oriented X3, no focal deficits. Absent: pronater drift, facial droop, speech deficit - Skin Skin exam: Present: dry, intact Internal Medicine: Result - Labs CBC & Chem 7: 01/25/19 11:10 01/29/19 11:08 Consult Discharge Plan - Plan Referrals: Ehsan Malone MD [Primary Care Provider] -
[2019-01-30] MEDS: *HR* Rivaroxaban 15 MG TABLET PO SCH (17:05)
[2019-01-30] MEDS: Metoprolol XL (24 HR) Succ 50 MG TAB.ER.24H PO SCH (17:05)
[2019-01-31] MEDS: Diltiazem CD (24hr) 120 MG CAPSULE PO SCH (09:50)
[2019-01-31] MEDS: Aspirin Enteric Coated 81 MG Tablet PO SCH (09:50)
--- NOTE | 2019-01-31 14:40 | Internal Med Progress Note ---
Addendum entered and electronically signed by Beto Cruz MD 01/31/19 15:24: Patient is busy with other providers and/or in therapies so I am unable to see her today. Original Note: Date of Encounter: 01/31/19 Time of Encounter: 14:38 - Assessment and plan (1) CVA (cerebral vascular accident) Current Visit: Yes Status: Acute Assessment and plan: Continue PT, OT, ST. Will follow progress. Follow up with neurology as scheduled. Has significant left-sided visual cut will consult Neuro- ophthalmologists. 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 Qualifiers: Atrial fibrillation type: chronic Qualified Code(s): I48.2 - Chronic atrial fibrillation (3) Decrease in appetite Current Visit: Yes Status: Acute Assessment and plan: Will start Remeron 7.5 mg at bedtime. Will monitor calorie count. - Time Spent With Patient less than 15 minutes - Subjective Interval history: Patient participating well with therapy. continues to need cues to scan to the left. Has left-sided visual cut. denies any complaints at this time. decrease in appetite but maintaining hydration. denies any concerns or issues at this time. getting rest breaks in between therapy sessions. Decrease in appetite. Monitoring calorie count. Will start Remeron 7.5 mg at bedtime. - Constitutional Vitals: Temp Pulse Resp BP Pulse Ox 98.1 F 64 14 127/72 95 01/31/19 07:25 01/31/19 07:25 01/31/19 07:25 01/31/19 07:25 01/31/19 07:25 General appearance: Present: cooperative, A&O X 3, pleasant, no acute distress, answers questions appropriately Exam: Left-sided visual field cut. - Head Head exam: Present: atraumatic, normocephalic - Eye Eye exam: Present: PERRL, conjuntiva pink, sclera anicteric Pupils: Present: PERRL - Neck Neck exam general surgery: Present: supple, trachea midline. Absent: lymphadenopathy - Respiratory Respiratory exam: Present: CTAB. Absent: accessory muscle use, rales, rhonchi, wheezes - Cardiovascular Cardiovascular exam: Present: RRR, +S1, +S2. Absent: diastolic murmur, gallop, rubs, systolic murmur - GI/Abdominal GI/Abdominal exam: Present: normal bowel sounds, soft, no peritoneal signs. Absent: distended, tenderness - Extremities Exam Extremities exam: Present: warm, radial pulses palpable and symmetrical. Absent: calf tenderness, cyanotic, pedal edema - Neurological Exam Neurological exam: Present: CN II-XII intact, oriented X3, no focal deficits. Absent: pronater drift, facial droop, speech deficit - Skin Skin exam: Present: dry, intact Internal Medicine: Result - Labs CBC & Chem 7: 01/25/19 11:10 01/29/19 11:08 Consult Discharge Plan - Plan Referrals: Ehsan Malone MD [Primary Care Provider] -
--- NOTE | 2019-01-31 15:14 | Rehab Psychology Progress Note ---
Date of Encounter: 01/31/19 Time of Encounter: 02:30 Subjective - Patient Report Patient Report: Feeling better and making progress. Sleep good. Objective - WHODAS Functional Impairment Concentration, Problem-solving, Communication: Mild Social Functioning: Mild - Mental Status Mental Status Changes: Ox3. Tearful when brought u loss of . Discussed going home and concerns with how it will "feel". It was discussed that going home will be another transition and need for routine to increase her independence and insight into needs. Association working well to improve memory. Assessment and Plan - Diagnosis (1) Adjustment disorder with mixed anxiety and depressed mood - Response to Treatment Response to Treatment: Improved - Prognosis Prognosis: Good - Treatment Plan Treatment Plan Recommendations: Continue Current Plan/Goals Next Session Date: 02/07/19
[2019-01-31] MEDS: *HR* Rivaroxaban 15 MG TABLET PO SCH (17:34)
[2019-01-31] MEDS: Metoprolol XL (24 HR) Succ 50 MG TAB.ER.24H PO SCH (17:34)
[2019-01-31] MEDS: Mirtazapine 15 MG TABLET PO SCH (21:30)
[2019-01-31] MEDS: Melatonin 3 MG TABLET PO PRN (21:31)
[2019-02-01] MEDS: Diltiazem CD (24hr) 120 MG CAPSULE PO SCH (08:44)
[2019-02-01] MEDS: Aspirin Enteric Coated 81 MG Tablet PO SCH (08:44)
--- NOTE | 2019-02-01 13:21 | Internal Med Progress Note ---
Date of Encounter: 02/01/19 Time of Encounter: 13:19 - Assessment and plan (1) CVA (cerebral vascular accident) Current Visit: Yes Status: Acute Assessment and plan: I have spent another half an hour to 45 minutes, trying to get neuro- ophthalmology consult arranged, at [facility]. We will continue on as planned and continue therapies with hope to have neuro pulmonology consult soon. 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 Qualifiers: Atrial fibrillation type: chronic Qualified Code(s): I48.2 - Chronic atrial fibrillation (3) Adjustment disorder with mixed anxiety and depressed mood Current Visit: Yes Status: Acute Assessment and plan: Mood is significantly better in the last few days. (4) Decrease in appetite Current Visit: Yes Status: Acute Assessment and plan: This is still a problem but we began Remeron yesterday. Will see if this helps over the next few days. Might consider Megace, otherwise. - Subjective Interval history: Patient is without acute complaint. She is feeling generally well today. B owels and bladder are functioning well. She has no other acute problems. Patient has no complaint of chest discomfort, dyspnea, orthopnea, palpitations, nausea or vomiting, constipation or diarrhea, other changes in bowel habits, difficulty with urination, rash or itching, or other new complaints, except as mentioned above. Review of systems is otherwise negative. I discussed management of her care with nursing staff.f. - Constitutional Vitals: Temp Pulse Resp BP Pulse Ox 97.7 F 69 16 133/85 95 02/01/19 07:15 02/01/19 07:15 02/01/19 07:15 02/01/19 07:15 02/01/19 07:15 Exam: Examination: (Except as mentioned above): General: In no apparent distress. Alert and oriented 3. Nondiaphoretic. Head: Atraumatic and normocephalic. Respiratory: No use of accessory muscles. Lungs are clear throughout. Normal airflow. Cardiovascular: Irregularly irregular without murmur appreciated. Abdomen: Bowel sounds are normal. No hepatosplenomegaly mass or tenderness appreciated. Patient is examined upright in chair and this also limits exam. Extremities: No cyanosis clubbing or edema. Skin: Warm and non-diaphoretic with no new lesions noted. Internal Medicine: Result - Labs CBC & Chem 7: 01/25/19 11:10 01/29/19 11:08 Consult Discharge Plan - Plan Referrals: Ehsan Malone MD [Primary Care Provider] -
[2019-02-01] MEDS: *HR* Rivaroxaban 15 MG TABLET PO SCH (16:55)
[2019-02-01] MEDS: Metoprolol XL (24 HR) Succ 50 MG TAB.ER.24H PO SCH (16:55)
[2019-02-01] MEDS: Melatonin 3 MG TABLET PO PRN (21:18)
[2019-02-01] MEDS: Mirtazapine 15 MG TABLET PO SCH (21:18)
[2019-02-02] MEDS: Diltiazem CD (24hr) 120 MG CAPSULE PO SCH (08:14)
[2019-02-02] MEDS: Aspirin Enteric Coated 81 MG Tablet PO SCH (08:14)
--- NOTE | 2019-02-02 10:02 | Internal Med Progress Note ---
Addendum entered and electronically signed by Beto Cruz MD 02/02/19 14:08: I have personally performed a face to face evaluation on this patient. I have r eviewed and agree with the care plan. History and Exam by me shows: Patient is without complaint. She is pleasantly surprised that she can go home in a couple of days. I told her that an insurance appeal is still going on and it might be longer but not the first week of February as previously listed as a possibility. Discussed care with other providers and/or nursing. Patient has no complaint of chest discomfort, dyspnea, orthopnea, palpitations, nausea or vomiting, constipation or diarrhea, other changes in bowel habits, difficulty with urination, rash or itching, or other new complaints, except as mentioned above. Review of systems is otherwise negative. Examination: (Except as mentioned above): General: In no apparent distress. Alert and oriented 3. Nondiaphoretic. Head: Atraumatic and normocephalic. Respiratory: No use of accessory muscles. Lungs are clear throughout. Normal airflow. Cardiovascular: Irregularly irregular without murmur appreciated. Abdomen: Bowel sounds are normal. No hepatosplenomegaly mass or tenderness appreciated. Extremities: No cyanosis clubbing or edema. Skin: Warm and non-diaphoretic with no new lesions noted. Current plan is to be discharged on Tuesday as insurance lists her only through tomorrow. [employer] appeal is in process and we should know this afternoon. The patient's neural ophthalmology consult at [facility] was not covered under insurance. For this reason, we are trying to arrange it at [facility]. Original Note: Date of Encounter: 02/02/19 Time of Encounter: 09:58 - Assessment and plan (1) CVA (cerebral vascular accident) Current Visit: Yes Status: Acute Assessment and plan: No acute issues. Patient's neurological exam remains unchanged from her admission. Patient with improved left hemiparesis and now appears 5/5 on MS to all ext. Continued left visual cut and left neglect. Patient continues to participate in physical therapy has been progressing well. Nursing and physical therapy state the patient continues to require cueing during multiple tasks such as taking medication and ADLs. Patient's conversation was appropriate during interview, but has difficulty answering complex questions. Continue to have difficulty scheduling patient with a neuro digital product specialist due to insurance coverage. A neuro digital product specialist from [place] has been discovered excepts for insurance and we will attempt to set an appointment for follow-up, due to patient's left visual loss following her CVA. Patient coverage for rehabilitation has been cut per insurance for early next week. 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 Patient's ventricular rate has been controlled less than 100. Patient continues on for anticoagulation. He denies any chest discomforts or palpitations. We will continue with current medications, to include Cardizem Qualifiers: Atrial fibrillation type: chronic Qualified Code(s): I48.2 - Chronic atrial fibrillation - Time Spent With Patient less than 15 minutes - Subjective Interval history: Patient appears relaxed and currently denies any discomforts or shortness of breath. Nursing states that patient continues to show signs of left neglect. Patient does state she continues to have a complete left visual cut. Patient voicing frustration in progress of PT/OT. No acute issues reported from Nx or therapy - Constitutional Vitals: Temp Pulse Resp BP Pulse Ox 98.4 F 71 16 148/89 93 02/02/19 07:22 02/02/19 07:22 02/02/19 07:22 02/02/19 07:22 02/02/19 07:22 General appearance: Present: cooperative, A&O X 3, pleasant, no acute distress, answers questions appropriately Exam: Patient noted to have some difficulty answering complex questions. - Head Head exam: Present: atraumatic, normocephalic - Eye Eye exam: Present: PERRL, conjuntiva pink, sclera anicteric Pupils: Present: PERRL - Neck Neck exam general surgery: Present: supple, trachea midline. Absent: lymphadeno moreno - Respiratory Respiratory exam: Present: CTAB. Absent: accessory muscle use, rales, rhonchi, wheezes - Cardiovascular Cardiovascular exam: Present: RRR, +S1, +S2. Absent: diastolic murmur, gallop, rubs, systolic murmur - GI/Abdominal GI/Abdominal exam: Present: normal bowel sounds, soft, no peritoneal signs. Absent: distended, tenderness - Extremities Exam Extremities exam: Present: warm, radial pulses palpable and symmetrical. Ab sent: calf tenderness, cyanotic, pedal edema - Neurological Exam Neurological exam: Present: CN II-XII intact, oriented X3. Absent: pronater drift, facial droop, speech deficit Additional comments: Patient currently shows 5/5 MS to all ext. Continued left visual loss. Continues to show some signs of left neglect. - Skin Skin exam: Present: dry, intact Internal Medicine: Result - Labs CBC & Chem 7: 01/25/19 11:10 01/29/19 11:08 Consult Discharge Plan - Plan Referrals: Ehsan Malone MD [Primary Care Provider] -
--- NOTE | 2019-02-02 12:52 | Discharge Summary ---
Addendum entered and electronically signed by Beto Cruz MD 02/06/19 11:33: I have personally performed a face to face evaluation on this patient. I have r eviewed and agree with the care plan. History and Exam by me shows: Patient is without complaint. She is disappointed to go home because she feels that she is improving with therapy. She has no acute changes. Her questions are answered. Discussed care with other providers and/or nursing. Patient has no complaint of chest discomfort, dyspnea, orthopnea, palpitations, nausea or vomiting, constipation or diarrhea, other changes in bowel habits, difficulty with urination, rash or itching, or other new complaints, except as mentioned above. Review of systems is otherwise negative. Examination: (Except as mentioned above): General: In no apparent distress. Alert and oriented 3. Nondiaphoretic. Head: Atraumatic and normocephalic. Respiratory: No use of accessory muscles. Lungs are clear throughout. Normal airflow. Cardiovascular: Irregularly irregular consistent with atrial fibrillation, without murmur appreciated. Abdomen: Bowel sounds are normal. No hepatosplenomegaly mass or tenderness appreciated. Extremities: No cyanosis clubbing or edema. Skin: Warm and non-diaphoretic with no new lesions noted. Patient is instructed to see neuro-ophthalmology in [place], when that can be arranged. Original Note: Date of Encounter: 02/06/19 Time of Encounter: 09:46 - Discharge Diagnosis (1) CVA (cerebral vascular accident) Priority: Primary Status: Acute Comments: Patient was admitted with a acute CVA resulting and loss of vision to left eye and left hemiparesis. Patient's hemiparesis has improved during her stay and currently her strength rate shows minimal residual. Patient's visions left eye is remain unchanged and patient is to follow-up with a neuro clean in places operator. Progressed well with physical therapy, but reports of continued levels of left neglect and patient requiring cueing on some of her ADLs remains. Patient showed no acute neurological changes during her stay. We will continue with current medications after discharge. Patient is continue follow-up with neurology, neuro ophthalmology and PCP. 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 Patient's heart rate has remained controlled less than 100 ventricular. Patient remains on Xeralto Qualifiers: Atrial fibrillation type: chronic Qualified Code(s): I48.2 - Chronic atrial fibrillation Hospital course: Ms. Hernandez is a 88 year old female, admitted to inpatient rehab unit s/p bilat CVA. Patient was transferred from [facility] after arriving on 01/09/2019 with left-sided weakness, numbness and loss of vision to left eye. Patient was not a candidate for TPA, due to symptoms improving. Tele stroke consult was performed with [facility]. Was found to have infarcts involving medial right occipital lobe, right thalamus, left lentiform nucleus, left cerebellum and right hippocampus Past medical history includes a fib with chronic anticoagulation and sinusitis. Patient has a left sided visual cut, which has remained unchanged since her admit to rehab. Left hemiparesis, which has improved during her stay and remains very minimal. Patient continues to show signs of left neglect. Continues to require verbal cueing for some of her task of ADL's per therpay. Denies headache, shortness of breath or chest pain. Patient is continent of bowel and bladder. Maintaining appetite and hydration. Prior to admission patient lived alone and was independent with all ADLs as well as driving. Discharge discussed with: patient Time spent discussing smoking cessation with patient: 3 to 10 minutes - Time Spent with Patient Total time spent providing and/or coordinating discharge services: Time spent: Less than 30 minutes - Discharge Medications Prescriptions: No Action Metoprolol Succinate [Toprol Xl] 100 mg PO QPM Aspirin Enteric Coated [Aspirin EC] 81 mg PO DAILY 30 Days #30 tablet.dr Moe LEPE (24hr) [Cardizem CD] 120 mg PO DAILY 30 Days #30 cap.er.24h Rivaroxaban [Xarelto] 15 mg PO 1700 30 Days #30 tablet Rosuvastatin [Crestor] 20 mg PO HS 30 Days #30 tablet Home Medications: Metoprolol Succinate [Toprol Xl] 100 mg PO QPM 01/06/19 [History] Aspirin Enteric Coated [Aspirin EC] 81 mg PO DAILY 30 Days #30 tablet. 01/15/19 [Rx] Diltiazem CD (24hr) [Cardizem CD] 120 mg PO DAILY 30 Days #30 cap.er.24h 01/15/19 [Rx] Rivaroxaban [Xarelto] 15 mg PO 1700 30 Days #30 tablet 01/15/19 [Rx] Rosuvastatin [Crestor] 20 mg PO HS 30 Days #30 tablet 01/15/19 [Rx] Allergies/Adverse Reactions: Allergy/AdvReac Type Severity Reaction Status Date / Time nitrofurantoin Allergy Difficulty Verified 01/06/19 12:59 [From Macrodantin] Breathing Date of admission: 01/16/19 15:41 Primary care physician: Ehsan Malone MD Consults: 01/16/19 16:58 Consult to Occupational Therapy [CONS] Routine Comment: Evaluate, develop and implement POC Reason for Consult: eval Does patient have active BEDREST order?: No Is patient medically & hemodynamically stable?: Yes Consult to Physical Medicine/Rehab [CONS] Routine Reason for Consult: cva Call Completed: Yes Consult to Physical Therapy [CONS] Routine Comment: Evaluate, develop and implement POC Reason for Consult: eval Does patient have active BEDREST order?: No Is patient medically & hemodynamically stable?: Yes Consult to Recreational Therapy [CONS] Routine Comment: Evaluate, develop and implement POC Consult to Keg Varnisher [CONS] Routine Reason for SW Consult: d/c planning Consult to Speech Therapy [CONS] Routine Comment: Evaluate, develop and implement POC Reason for Consult: speech impairment Call Completed: Yes 01/17/19 11:23 Consult to Psychology [CONS] Routine Consulting Provider: Mervat Erickson Reason for Consult: Possible depression; adjustment disorder Call Completed: No Discharging clinician: Beto Cruz - Constitutional Vitals: Temp Pulse Resp BP Pulse Ox 98.4 F 71 16 148/89 93 02/02/19 07:22 02/02/19 07:22 02/02/19 07:22 02/02/19 07:22 02/02/19 07:22 General appearance: Present: cooperative, A&O X 3, pleasant, no acute distress, answers questions appropriately Exam: Patient noted to have some difficulty with complex questions. Patient continues to require some cueing with daily tasks - Head Head exam: Present: atraumatic, normocephalic - Eye Eye exam: Present: PERRL, conjuntiva pink, sclera anicteric Pupils: Present: PERRL Additional comments: Patient continues to show visual loss to left eye. - Neck Neck exam general surgery: Present: supple, trachea midline. Absent: lymphadenopathy - Respiratory Respiratory exam: Present: CTAB. Absent: accessory muscle use, rales, rhonchi, wheezes - Cardiovascular Cardiovascular exam: Present: irregular rhythm, RRR, +S1, +S2. Absent: diastolic murmur, gallop, rubs, systolic murmur Additional comments: Heart rate remains irregular with controlled ventricular rate less than 100 - GI/Abdominal GI/Abdominal exam: Present: normal bowel sounds, soft, no peritoneal signs. Absent: distended, tenderness - Extremities Exam Extremities exam: Present: warm, radial pulses palpable and symmetrical. Absent: calf tenderness, cyanotic, pedal edema - Neurological Exam Neurological exam: Present: CN II-XII intact, oriented X3, no focal deficits. Absent: pronater drift, facial droop, speech deficit Additional comments: Patient continues with visual cut to the left eye, slight left hemiparesis at +4/5 MS and continues to have slight left neglect. Her cueing on multiple ADLs. - Skin Skin exam: Present: dry, intact - Patient Status Disposition: Home Health Service Condition: Good Functional capacity at discharge: uses cane/walker Overall status at discharge: patient is progressing back to baseline - Discharge Instructions Follow Up With: Ehsan Malone MD [Primary Care Provider] - - Diet and Activity Activity: ambulate only with your walker, as per physical therapy, increase activity as tolerated Diet: advance to your usual diet, low fat, low cholesterol, low salt diet
[2019-02-02] MEDS: Metoprolol XL (24 HR) Succ 50 MG TAB.ER.24H PO SCH (17:57)
[2019-02-02] MEDS: *HR* Rivaroxaban 15 MG TABLET PO SCH (17:57)
[2019-02-02] MEDS: Melatonin 3 MG TABLET PO PRN (21:30)
[2019-02-02] MEDS: Mirtazapine 15 MG TABLET PO SCH (21:30)
[2019-02-03] MEDS: Aspirin Enteric Coated 81 MG Tablet PO SCH (09:07)
[2019-02-03] MEDS: Diltiazem CD (24hr) 120 MG CAPSULE PO SCH (09:07)
--- NOTE | 2019-02-03 16:11 | Internal Med Progress Note ---
Date of Encounter: 02/03/19 Time of Encounter: 15:40 - Assessment and plan (1) CVA (cerebral vascular accident) Current Visit: Yes Status: Acute Assessment and plan: No acute issues. Patient with improved left hemiparesis and now appears 5/5 on MS to all ext. Continued left visual cut and left neglect. Patient continues to participate in physical therapy has been progressing well. Continue to have difficulty scheduling patient with a neuro fire crew worker due to insurance coverage. A neuro fire crew worker from [place] has been discovered excepts for insurance and we will attempt to set an appointment for follow-up, due to patient's left visual loss following her CVA. 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 Patient's ventricular rate has been controlled less than 100. Patient continues on for anticoagulation and diltiazem. Qualifiers: Atrial fibrillation type: chronic Qualified Code(s): I48.2 - Chronic atrial fibrillation - Time Spent With Patient less than 15 minutes - Subjective Interval history: Overall doing well. Had some problem with going to the bathroom, but everything improved after a BM. Would like left eye sight to be fixed if possible. - Constitutional Vitals: Temp Pulse Resp BP Pulse Ox 97.6 F 70 16 154/89 96 02/03/19 07:21 02/03/19 07:21 02/03/19 07:21 02/03/19 07:21 02/03/19 07:21 General appearance: Present: cooperative, A&O X 3, pleasant, no acute distress, answers questions appropriately Exam: Gen: A&Ox3, NAD. HEENT: NCAT. Neck: No palpable lymphadenopathy or thyromegaly. CV: Irregularly irregular, rate-controlled. No murmur. Capillary refill < 2 seconds. Pulm: CTAB. Abd: (+)BS. NDNT. Neuro: Left neglect noted, otherwise non-focal. Skin: No rash. Ext: No pitting edema. Internal Medicine: Result - Labs CBC & Chem 7: 01/25/19 11:10 01/29/19 11:08 Consult Discharge Plan - Plan Referrals: Ehsan Malone MD [Primary Care Provider] -
[2019-02-03] MEDS: Metoprolol XL (24 HR) Succ 50 MG TAB.ER.24H PO SCH (17:35)
[2019-02-03] MEDS: *HR* Rivaroxaban 15 MG TABLET PO SCH (17:35)
[2019-02-03] MEDS: Melatonin 3 MG TABLET PO PRN (20:17)
[2019-02-03] MEDS: Mirtazapine 15 MG TABLET PO SCH (20:18)
[2019-02-04] MEDS: Aspirin Enteric Coated 81 MG Tablet PO SCH (08:28)
[2019-02-04] MEDS: Diltiazem CD (24hr) 120 MG CAPSULE PO SCH (08:28)
--- NOTE | 2019-02-04 13:14 | Internal Med Progress Note ---
Date of Encounter: 02/04/19 Time of Encounter: 12:30 - Assessment and plan (1) CVA (cerebral vascular accident) Current Visit: Yes Status: Acute Assessment and plan: No acute issues. Patient with improved left hemiparesis and now appears 5/5 on MS to all ext. Continued left visual cut and left neglect. Patient continues to participate in physical therapy has been progressing well. Continue to have difficulty scheduling patient with a neuro structural test engineer due to insurance coverage. A neuro structural test engineer from [place] has been discovered excepts for insurance and we will attempt to set an appointment for follow-up, due to patient's left visual loss following her CVA. 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 Still having left neglect. No acute event. - Constitutional Vitals: Temp Pulse Resp BP Pulse Ox 98.2 F 72 16 138/77 96 02/04/19 07:23 02/04/19 07:23 02/04/19 07:23 02/04/19 07:23 02/04/19 07:23 General appearance: Present: cooperative, A&O X 3, pleasant, no acute distress, answers questions appropriately Exam: Gen: A&Ox3, NAD. HEENT: NCAT. Neck: No palpable lymphadenopathy or thyromegaly. CV: Irregularly irregular, rate-controlled. No murmur. Capillary refill < 2 seconds. Pulm: CTAB. Abd: (+)BS. NDNT. Neuro: Left neglect noted, otherwise non-focal. Skin: No rash. Ext: No pitting edema. Internal Medicine: Result - Labs CBC & Chem 7: 01/25/19 11:10 01/29/19 11:08 Consult Discharge Plan - Plan Referrals: Ehsan Malone MD [Primary Care Provider] -
[2019-02-04] MEDS: *HR* Rivaroxaban 15 MG TABLET PO SCH (17:09)
[2019-02-04] MEDS: Metoprolol XL (24 HR) Succ 50 MG TAB.ER.24H PO SCH (17:09)
[2019-02-04] MEDS: Mirtazapine 15 MG TABLET PO SCH (20:02)
[2019-02-05] MEDS: Diltiazem CD (24hr) 120 MG CAPSULE PO SCH (08:26)
[2019-02-05] MEDS: Aspirin Enteric Coated 81 MG Tablet PO SCH (08:26)
--- NOTE | 2019-02-05 12:06 | Internal Med Progress Note ---
Date of Encounter: 02/05/19 Time of Encounter: 12:04 - Assessment and plan (1) CVA (cerebral vascular accident) Current Visit: Yes Status: Acute Assessment and plan: Continue PT, OT, ST. Will follow progress. Follow up with neurology as scheduled. Has significant left-sided visual cut will consult Neuro- ophthalmologists. 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 Qualifiers: Atrial fibrillation type: chronic Qualified Code(s): I48.2 - Chronic atrial fibrillation (3) Decrease in appetite Current Visit: Yes Status: Acute Assessment and plan: Continue Remeron 7.5 mg at bedtime. - Time Spent With Patient less than 15 minutes - Subjective Interval history: Patient participating well with therapy. Has left-sided visual cut. Scanning to the left without prompting. denies any complaints at this time. States she feels like appetite is improving. - Constitutional Vitals: Temp Pulse Resp BP Pulse Ox 97.9 F 79 16 136/88 93 02/05/19 08:34 02/05/19 08:34 02/05/19 08:34 02/05/19 08:34 02/05/19 08:34 General appearance: Present: cooperative, A&O X 3, pleasant, no acute distress, answers questions appropriately Exam: Left visual field cut - Head Head exam: Present: atraumatic, normocephalic - Eye Eye exam: Present: PERRL, conjuntiva pink, sclera anicteric Pupils: Present: PERRL - Neck Neck exam general surgery: Present: supple, trachea midline. Absent: lymphadenopathy - Respiratory Respiratory exam: Present: CTAB. Absent: accessory muscle use, rales, rhonchi, wheezes - Cardiovascular Cardiovascular exam: Present: RRR, +S1, +S2. Absent: diastolic murmur, gallop, rubs, systolic murmur - GI/Abdominal GI/Abdominal exam: Present: normal bowel sounds, soft, no peritoneal signs. Abs ent: distended, tenderness - Extremities Exam Extremities exam: Present: warm, radial pulses palpable and symmetrical. Absent: calf tenderness, cyanotic, pedal edema - Neurological Exam Neurological exam: Present: CN II-XII intact, oriented X3, no focal deficits. Absent: pronater drift, facial droop, speech deficit - Skin Skin exam: Present: dry, intact Internal Medicine: Result - Labs CBC & Chem 7: 01/25/19 11:10 01/29/19 11:08 Consult Discharge Plan - Plan Referrals: Ehsan Malone MD [Primary Care Provider] -
--- NOTE | 2019-02-05 13:31 | Physical Med Progress Note ---
Date of Encounter: 02/05/19 Time of Encounter: 13:29 Assessment and Plan (1) CVA (cerebral vascular accident) Current Visit: Yes Status: Acute Assessment and plan: Good progress in therapies with ADL and mobility. Her left visual field cut and left hemineglect are still a safety concert. We are referring her to Neuro-ophthalmology for eval. Family is taking her home with OP therapies. 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 No pain. Feels she's doing better. Appetite improving. - Constitutional Vitals: Vital Signs Temp Pulse Resp BP Pulse Ox 02/05/19 08:34 97.9 F 79 16 136/88 93 02/04/19 19:00 97.9 F 71 17 133/83 95 Intake and Output 02/04/19 02/05/19 02/05/19 23:59 07:59 15:59 Intake Total 484 / 484 120 / 120 Balance 484 / 484 120 / 120 Intake: Oral 484 / 484 120 / 120 Other: Meal Dinner Breakfast Percent of Meal Consumed 100% 75% Stool Size Moderate Stool Consistency formed Stool Color Brown # Voids 1 1 Weight 67.132 kg Patient Weight 02/05/19 23:59 Weight 67.132 kg General appearance: cooperative, no acute distress, thin - Head Head exam: Present: atraumatic, normocephalic - Eye Eye exam: Present: EOMI Additional comments: Left visual field cut. - ENT ENT exam: Present: mucous membranes moist, normal exam - Neck Neck exam: Present: full ROM - Extremities Exam Extremities exam: Present: full ROM Additional comments: Left side strength 4/5. - Neurological Exam Neurological exam: Present: abnormal gait, alert, CN II-XII intact, oriented X3 Additional comments: Left hemineglect about the same. She is compensating more but is still a safety risk. - Skin Skin exam: Present: intact Physical Medicine-PN: Obj Data - Labs CBC & Chem 7: 01/25/19 11:10 01/29/19 11:08 Consult Discharge Plan - Plan Referrals: Ehsan Malone MD [Primary Care Provider] -
[2019-02-05] MEDS: Metoprolol XL (24 HR) Succ 50 MG TAB.ER.24H PO SCH (17:24)
[2019-02-05] MEDS: *HR* Rivaroxaban 15 MG TABLET PO SCH (17:25)
[2019-02-05] MEDS: Mirtazapine 15 MG TABLET PO SCH (19:50)
[2019-02-05] MEDS: Melatonin 3 MG TABLET PO PRN (19:50)
[2019-02-06 07:56] VITALS: BP 140/84
[2019-02-06] MEDS: Diltiazem CD (24hr) 120 MG CAPSULE PO SCH (10:02)
[2019-02-06] MEDS: Aspirin Enteric Coated 81 MG Tablet PO SCH (10:02)
--- NOTE | 2019-02-06 10:52 | Physician Discharge Referral ---
Addendum entered and electronically signed by Beto Cruz MD 02/06/19 11:33: Original Note: Home Health/Hosp Referral Info Transfer to: Home Health Provider in Charge Post Discharge: PCP - Diagnosis (1) CVA (cerebral vascular accident) Priority: Primary Status: Acute (2) Atrial fibrillation Priority: Secondary Status: Chronic - Respiratory Orders Smoking Cessation: Smoking cessation has been advised. For more information, call the [place] Tobacco Quit Line at 6-466-TVEA-NOW. - Diet/Nutrition Diet/Nutrition Orders: No Added Salt (KIRAN) - Activity Activity Orders: Up ad earnestine, Walker - Services Needed Following services are medically necessary services: Nursing, Home Health Aide, Physical Therapy, Occupational Therapy - Transfer Medications Home Medications: Metoprolol Succinate [Toprol Xl] 100 mg PO QPM 01/06/19 [History] Aspirin Enteric Coated [Aspirin EC] 81 mg PO DAILY 30 Days #30 tablet.dr 01/15/19 [Rx] Diltiazem CD (24hr) [Cardizem CD] 120 mg PO DAILY 30 Days #30 cap.er.24h 01/15/19 [Rx] Rivaroxaban [Xarelto] 15 mg PO 1700 30 Days #30 tablet 01/15/19 [Rx] Rosuvastatin [Crestor] 20 mg PO HS 30 Days #30 tablet 01/15/19 [Rx] Allergies/Adverse Reactions: Allergy/AdvReac Type Severity Reaction Status Date / Time nitrofurantoin Allergy Difficulty Verified 01/06/19 12:59 [From Macrodantin] Breathing Certification: Further, I certify that my clinical findings support that this patient is homebound (i.e. absences from home require considerable and taxing effort and are for medical reasons or buddhist services or infrequently or short duration when for other reasons) because: Homebound Reason: Patient requires assistance of a person or device to safely leave home, Leaving home requires considerable and taxing effort due to condition Attestation: My signature below is to certify that this patient is under my care and that I, or nurse practitioner, or a physician's food and beverage assistant working with me, has a [id number] encounter with this patient.
== END 2019-02-06 16:40 | disposition home health service (06) | DRG 57 ==
LOC: INPGRE 01-16 15:41

== ENCOUNTER 2022-06-11 21:12 | Inpatient (IN) ==
[2022-06-12] MEDS: Apixaban 2.5 MG TABLET PO SCH ×2 (10:01→21:47)
[2022-06-12] MEDS: Metoprolol XL (24 HR) Succ 50 MG TAB.ER.24H PO SCH (10:01)
[2022-06-12] MEDS: Aspirin Enteric Coated 81 MG Tablet PO SCH (10:01)
[2022-06-12 11:29] LABS: Hematocrit 39.3 % (35.3-44.9); Hemoglobin 13.5 g/dL (11.5-15.4); Mean Corpuscular HGB Conc 34.4 g/dL (31.6-35.5); Mean Corpuscular Hemoglobin 30.8 pg (28.0-33.3); Mean Corpuscular Volume 89.7 fL (83.0-100.0); Mean Platelet Volume 10.8 fL (9.4-12.4); Platelet Count 189 K/mcL (140-400); Red Blood Count 4.38 M/mcL (3.82-4.97); Red Cell Distribution Width 13.4 % (11.5-14.5); White Blood Count 7.7 K/mcL (4.3-11.1)
[2022-06-12 11:44] LABS: Calcium 9.3 mg/dL (8.6-10.3); Potassium 3.8 mEq/L (3.5-5.1)
[2022-06-12] MEDS ORDERED: 0.9 % Sodium Chloride 1,000 ML IVC SCH (13:00)
[2022-06-13 04:14] LABS: Basophils % 0.3 %; Eosinophils # 0.2 K/mcL (0.0-0.6); Eosinophils % 2.8 %; Hematocrit 35.7 % (35.3-44.9); Hemoglobin 12.1 g/dL (11.5-15.4); Immature Granulocytes % 3.6 % (0-4); Lymphocytes # 1.2 K/mcL (0.6-4.6); Lymphocytes % 16.5 %; Mean Corpuscular HGB Conc 33.9 g/dL (31.6-35.5); Mean Corpuscular Hemoglobin 30.6 pg (28.0-33.3); Mean Corpuscular Volume 90.4 fL (83.0-100.0); Mean Platelet Volume 10.6 fL (9.4-12.4); Monocytes # 0.8 K/mcL (0.0-1.3); Monocytes % 10.3 %; Platelet Count 174 K/mcL (140-400); Red Blood Count 3.95 M/mcL (3.82-4.97); Red Cell Distribution Width 13.4 % (11.5-14.5); Segmented Neutrophils % 66.5 %; White Blood Count 7.5 K/mcL (4.3-11.1)
[2022-06-13 04:27] LABS: Calcium 8.6 mg/dL (8.6-10.3); Potassium 3.5 mEq/L (3.5-5.1)
[2022-06-13] MEDS: Metoprolol XL (24 HR) Succ 50 MG TAB.ER.24H PO SCH (10:28)
[2022-06-13] MEDS: Aspirin Enteric Coated 81 MG Tablet PO SCH (10:29)
[2022-06-13] MEDS: Apixaban 2.5 MG TABLET PO SCH ×2 (10:29→21:45)
[2022-06-14 04:44] LABS: Basophils % 0.2 %; Eosinophils # 0.3 K/mcL (0.0-0.6); Eosinophils % 2.5 %; Hematocrit 37.9 % (35.3-44.9); Hemoglobin 12.8 g/dL (11.5-15.4); Lymphocytes # 1.3 K/mcL (0.6-4.6); Lymphocytes % 12.6 %; Mean Corpuscular HGB Conc 33.8 g/dL (31.6-35.5); Mean Corpuscular Hemoglobin 30.3 pg (28.0-33.3); Mean Corpuscular Volume 89.8 fL (83.0-100.0); Mean Platelet Volume 10.8 fL (9.4-12.4); Monocytes # 0.9 K/mcL (0.0-1.3); Monocytes % 8.6 %; Neutrophils # 7.5 K/mcL (1.6-8.9); Platelet Count 184 K/mcL (140-400); Red Blood Count 4.22 M/mcL (3.82-4.97); Red Cell Distribution Width 13.6 % (11.5-14.5); Segmented Neutrophils % 74.1 %; White Blood Count 10.1 K/mcL (4.3-11.1)
[2022-06-14 04:59] LABS: Potassium 3.6 mEq/L (3.5-5.1)
[2022-06-14] MEDS ORDERED: Ondansetron ODT 4 MG TAB.RAPDIS SL PRN (09:41)
[2022-06-14] MEDS: Apixaban 2.5 MG TABLET PO SCH (10:36)
[2022-06-14] MEDS: Metoprolol XL (24 HR) Succ 50 MG TAB.ER.24H PO SCH (10:36)
[2022-06-14] MEDS: Aspirin Enteric Coated 81 MG Tablet PO SCH (10:40)
[2022-06-15] MEDS: Apixaban 2.5 MG TABLET PO SCH ×3 (00:14→20:59)
[2022-06-15] MEDS: Metoprolol XL (24 HR) Succ 50 MG TAB.ER.24H PO SCH (08:56)
[2022-06-15] MEDS: Aspirin Enteric Coated 81 MG Tablet PO SCH (08:57)
[2022-06-15] MEDS: Sennosides/Docusate Sodium TABLET PO SCH (21:00)
[2022-06-15] MEDS: polyethylene glycoL 3350 17 GM POWD.PACK PO SCH (21:00)
[2022-06-16] MEDS: Apixaban 2.5 MG TABLET PO SCH ×2 (09:01→20:06)
[2022-06-16] MEDS: Metoprolol XL (24 HR) Succ 50 MG TAB.ER.24H PO SCH (09:01)
[2022-06-16] MEDS: Aspirin Enteric Coated 81 MG Tablet PO SCH (09:01)
[2022-06-16] MEDS: polyethylene glycoL 3350 17 GM POWD.PACK PO SCH ×2 (09:08→20:06)
[2022-06-16] MEDS: Sennosides/Docusate Sodium TABLET PO SCH ×2 (09:09→20:08)
[2022-06-16] MEDS: Carbamide Peroxide 150 DROP/15 ML BOTTLE RIGHT EAR SCH (21:45)
[2022-06-16] MEDS: Carbamide Peroxide 150 DROP/15 ML BOTTLE LEFT EAR SCH (21:45)
[2022-06-17 05:45] LABS: Basophils % 0.5 %; Eosinophils # 0.2 K/mcL (0.0-0.6); Hematocrit 33.5 % (35.3-44.9); Hemoglobin 11.2 g/dL (11.5-15.4); Lymphocytes # 1.8 K/mcL (0.6-4.6); Lymphocytes % 22.1 %; Mean Corpuscular HGB Conc 33.4 g/dL (31.6-35.5); Mean Corpuscular Hemoglobin 30.4 pg (28.0-33.3); Mean Platelet Volume 10.4 fL (9.4-12.4); Monocytes # 0.8 K/mcL (0.0-1.3); Monocytes % 10.1 %; Neutrophils # 5.2 K/mcL (1.6-8.9); Platelet Count 170 K/mcL (140-400); Red Blood Count 3.68 M/mcL (3.82-4.97); Red Cell Distribution Width 13.2 % (11.5-14.5); Segmented Neutrophils % 64.3 %
[2022-06-17 06:03] LABS: Potassium 3.4 mEq/L (3.5-5.1)
[2022-06-17 06:07] LABS: Calcium 8.8 mg/dL (8.6-10.3)
[2022-06-17] MEDS: Apixaban 2.5 MG TABLET PO SCH ×2 (08:55→19:51)
[2022-06-17] MEDS: Metoprolol XL (24 HR) Succ 50 MG TAB.ER.24H PO SCH (08:55)
[2022-06-17] MEDS: Aspirin Enteric Coated 81 MG Tablet PO SCH (08:55)
[2022-06-17] MEDS: Sennosides/Docusate Sodium TABLET PO SCH ×2 (08:55→19:50)
[2022-06-17] MEDS: polyethylene glycoL 3350 17 GM POWD.PACK PO SCH (08:56)
[2022-06-17] MEDS: Carbamide Peroxide 150 DROP/15 ML BOTTLE RIGHT EAR SCH (08:57)
[2022-06-17] MEDS: Carbamide Peroxide 150 DROP/15 ML BOTTLE LEFT EAR SCH (08:57)
[2022-06-18] MEDS: Carbamide Peroxide 150 DROP/15 ML BOTTLE LEFT EAR SCH ×2 (05:45→17:49)
[2022-06-18] MEDS: Carbamide Peroxide 150 DROP/15 ML BOTTLE RIGHT EAR SCH ×2 (05:45→17:49)
[2022-06-18] MEDS: Sennosides/Docusate Sodium TABLET PO SCH ×2 (08:48→20:24)
[2022-06-18] MEDS: polyethylene glycoL 3350 17 GM POWD.PACK PO SCH (08:48)
[2022-06-18] MEDS: Aspirin Enteric Coated 81 MG Tablet PO SCH (08:48)
[2022-06-18] MEDS: Metoprolol XL (24 HR) Succ 50 MG TAB.ER.24H PO SCH ×2 (08:48→10:17)
[2022-06-18] MEDS: Apixaban 2.5 MG TABLET PO SCH ×2 (08:48→20:24)
[2022-06-19] MEDS: Carbamide Peroxide 150 DROP/15 ML BOTTLE RIGHT EAR SCH ×2 (06:13→18:12)
[2022-06-19] MEDS: Carbamide Peroxide 150 DROP/15 ML BOTTLE LEFT EAR SCH ×2 (06:13→18:12)
[2022-06-19] MEDS: polyethylene glycoL 3350 17 GM POWD.PACK PO SCH (08:24)
[2022-06-19] MEDS: Metoprolol XL (24 HR) Succ 50 MG TAB.ER.24H PO SCH (08:24)
[2022-06-19] MEDS: Apixaban 2.5 MG TABLET PO SCH ×2 (08:24→20:33)
[2022-06-19] MEDS: Aspirin Enteric Coated 81 MG Tablet PO SCH (08:24)
[2022-06-19] MEDS: Sennosides/Docusate Sodium TABLET PO SCH ×2 (08:25→20:36)
[2022-06-20] MEDS: Carbamide Peroxide 150 DROP/15 ML BOTTLE LEFT EAR SCH ×2 (05:23→19:52)
[2022-06-20] MEDS: Carbamide Peroxide 150 DROP/15 ML BOTTLE RIGHT EAR SCH ×2 (05:24→19:52)
[2022-06-20 06:29] LABS: Hematocrit 31.4 % (35.3-44.9); Hemoglobin 10.3 g/dL (11.5-15.4); Mean Corpuscular HGB Conc 32.8 g/dL (31.6-35.5); Mean Corpuscular Hemoglobin 30.8 pg (28.0-33.3); Mean Platelet Volume 10.2 fL (9.4-12.4); Platelet Count 158 K/mcL (140-400); Red Blood Count 3.34 M/mcL (3.82-4.97); Red Cell Distribution Width 13.4 % (11.5-14.5); White Blood Count 6.1 K/mcL (4.3-11.1)
[2022-06-20 06:44] LABS: Calcium 8.7 mg/dL (8.6-10.3); Magnesium 1.7 mg/dL (1.6-2.6); Potassium 3.8 mEq/L (3.5-5.1)
[2022-06-20] MEDS: polyethylene glycoL 3350 17 GM POWD.PACK PO SCH ×2 (08:21→08:54)
[2022-06-20] MEDS: Apixaban 2.5 MG TABLET PO SCH ×2 (08:21→19:51)
[2022-06-20] MEDS: Metoprolol XL (24 HR) Succ 50 MG TAB.ER.24H PO SCH (08:21)
[2022-06-20] MEDS: Aspirin Enteric Coated 81 MG Tablet PO SCH (08:21)
[2022-06-20] MEDS: Sennosides/Docusate Sodium TABLET PO SCH ×2 (08:21→19:50)
[2022-06-21] MEDS: Carbamide Peroxide 150 DROP/15 ML BOTTLE RIGHT EAR SCH ×2 (05:43→18:04)
[2022-06-21] MEDS: Carbamide Peroxide 150 DROP/15 ML BOTTLE LEFT EAR SCH ×2 (05:43→18:04)
[2022-06-21] MEDS: Aspirin Enteric Coated 81 MG Tablet PO SCH (09:36)
[2022-06-21] MEDS: Metoprolol XL (24 HR) Succ 50 MG TAB.ER.24H PO SCH (09:36)
[2022-06-21] MEDS: Apixaban 2.5 MG TABLET PO SCH ×2 (09:36→21:28)
[2022-06-21] MEDS: Sennosides/Docusate Sodium TABLET PO SCH ×2 (09:37→21:29)
[2022-06-21] MEDS: polyethylene glycoL 3350 17 GM POWD.PACK PO SCH (09:37)
[2022-06-22] MEDS: Carbamide Peroxide 150 DROP/15 ML BOTTLE LEFT EAR SCH ×2 (05:48→18:07)
[2022-06-22] MEDS: Carbamide Peroxide 150 DROP/15 ML BOTTLE RIGHT EAR SCH ×2 (05:48→18:07)
[2022-06-22] MEDS: Metoprolol XL (24 HR) Succ 50 MG TAB.ER.24H PO SCH (07:56)
[2022-06-22] MEDS: polyethylene glycoL 3350 17 GM POWD.PACK PO SCH (07:56)
[2022-06-22] MEDS: Aspirin Enteric Coated 81 MG Tablet PO SCH (07:56)
[2022-06-22] MEDS: Apixaban 2.5 MG TABLET PO SCH ×2 (07:56→20:39)
[2022-06-22] MEDS: Sennosides/Docusate Sodium TABLET PO SCH (07:56)
[2022-06-22] MEDS ORDERED: polyethylene glycoL 3350 17 GM POWD.PACK PO PRN (16:01)
[2022-06-22] MEDS ORDERED: Sennosides/Docusate Sodium TABLET PO PRN (16:01)
[2022-06-23] MEDS: Carbamide Peroxide 150 DROP/15 ML BOTTLE RIGHT EAR SCH ×2 (04:44→17:17)
[2022-06-23] MEDS: Carbamide Peroxide 150 DROP/15 ML BOTTLE LEFT EAR SCH ×2 (04:44→17:17)
[2022-06-23] MEDS: Metoprolol XL (24 HR) Succ 50 MG TAB.ER.24H PO SCH (08:55)
[2022-06-23] MEDS: Aspirin Enteric Coated 81 MG Tablet PO SCH (08:55)
[2022-06-23] MEDS: Apixaban 2.5 MG TABLET PO SCH ×2 (08:56→19:48)
[2022-06-24] MEDS: Carbamide Peroxide 150 DROP/15 ML BOTTLE LEFT EAR SCH ×2 (05:40→18:31)
[2022-06-24] MEDS: Carbamide Peroxide 150 DROP/15 ML BOTTLE RIGHT EAR SCH ×2 (05:40→18:31)
[2022-06-24 06:56] LABS: Hematocrit 31.8 % (35.3-44.9); Hemoglobin 10.3 g/dL (11.5-15.4); Mean Corpuscular HGB Conc 32.4 g/dL (31.6-35.5); Mean Corpuscular Volume 95.8 fL (83.0-100.0); Mean Platelet Volume 10.8 fL (9.4-12.4); Platelet Count 120 K/mcL (140-400); Red Blood Count 3.32 M/mcL (3.82-4.97); Red Cell Distribution Width 13.2 % (11.5-14.5)
[2022-06-24 07:06] LABS: Calcium 8.3 mg/dL (8.6-10.3); Magnesium 1.8 mg/dL (1.6-2.6); Potassium 4.7 mEq/L (3.5-5.1)
[2022-06-24] MEDS: Aspirin Enteric Coated 81 MG Tablet PO SCH (08:48)
[2022-06-24] MEDS: Metoprolol XL (24 HR) Succ 50 MG TAB.ER.24H PO SCH (08:48)
[2022-06-24] MEDS: Apixaban 2.5 MG TABLET PO SCH ×2 (08:48→20:50)
[2022-06-25] MEDS: Carbamide Peroxide 150 DROP/15 ML BOTTLE LEFT EAR SCH ×2 (06:21→18:03)
[2022-06-25] MEDS: Carbamide Peroxide 150 DROP/15 ML BOTTLE RIGHT EAR SCH ×2 (06:21→18:03)
[2022-06-25] MEDS: Metoprolol XL (24 HR) Succ 50 MG TAB.ER.24H PO SCH (09:15)
[2022-06-25] MEDS: Apixaban 2.5 MG TABLET PO SCH ×2 (09:15→20:51)
[2022-06-25] MEDS: Aspirin Enteric Coated 81 MG Tablet PO SCH (09:15)
[2022-06-26] MEDS: Carbamide Peroxide 150 DROP/15 ML BOTTLE LEFT EAR SCH ×2 (05:47→16:50)
[2022-06-26] MEDS: Carbamide Peroxide 150 DROP/15 ML BOTTLE RIGHT EAR SCH ×2 (05:47→16:50)
[2022-06-26] MEDS: Metoprolol XL (24 HR) Succ 50 MG TAB.ER.24H PO SCH (08:55)
[2022-06-26] MEDS: Apixaban 2.5 MG TABLET PO SCH ×2 (08:55→20:08)
[2022-06-26] MEDS: Aspirin Enteric Coated 81 MG Tablet PO SCH (08:55)
[2022-06-27] MEDS: Carbamide Peroxide 150 DROP/15 ML BOTTLE RIGHT EAR SCH ×2 (05:16→18:35)
[2022-06-27] MEDS: Carbamide Peroxide 150 DROP/15 ML BOTTLE LEFT EAR SCH ×2 (05:16→18:35)
[2022-06-27] MEDS: Metoprolol XL (24 HR) Succ 50 MG TAB.ER.24H PO SCH (08:34)
[2022-06-27] MEDS: Aspirin Enteric Coated 81 MG Tablet PO SCH (08:34)
[2022-06-27] MEDS: Apixaban 2.5 MG TABLET PO SCH ×2 (08:34→20:42)
[2022-06-28] MEDS: Carbamide Peroxide 150 DROP/15 ML BOTTLE LEFT EAR SCH ×2 (05:56→18:48)
[2022-06-28] MEDS: Apixaban 2.5 MG TABLET PO SCH ×2 (10:00→19:58)
[2022-06-28] MEDS: Metoprolol XL (24 HR) Succ 50 MG TAB.ER.24H PO SCH (10:00)
[2022-06-28] MEDS: Aspirin Enteric Coated 81 MG Tablet PO SCH (10:00)
[2022-06-28] MEDS: Carbamide Peroxide 150 DROP/15 ML BOTTLE RIGHT EAR SCH ×2 (10:05→18:48)
[2022-06-29] MEDS: Carbamide Peroxide 150 DROP/15 ML BOTTLE LEFT EAR SCH ×2 (04:20→18:01)
[2022-06-29] MEDS: Carbamide Peroxide 150 DROP/15 ML BOTTLE RIGHT EAR SCH ×2 (04:20→18:00)
[2022-06-29 04:55] LABS: Hematocrit 30.8 % (35.3-44.9); Mean Corpuscular HGB Conc 32.5 g/dL (31.6-35.5); Mean Corpuscular Hemoglobin 30.6 pg (28.0-33.3); Mean Corpuscular Volume 94.2 fL (83.0-100.0); Platelet Count 160 K/mcL (140-400); Red Blood Count 3.27 M/mcL (3.82-4.97); Red Cell Distribution Width 13.3 % (11.5-14.5); White Blood Count 3.9 K/mcL (4.3-11.1)
[2022-06-29 05:14] LABS: Albumin 2.7 g/dL (3.5-5.7); Albumin/Globulin Ratio 0.9 (1.1-2.2); Bilirubin,Total 0.7 mg/dL (0.3-1.0); Calcium 8.8 mg/dL (8.6-10.3); Globulin 2.9 g/dL (2.4-3.5); Magnesium 1.8 mg/dL (1.6-2.6); Potassium 4.1 mEq/L (3.5-5.1); Total Protein 5.6 g/dL (6.4-8.9)
[2022-06-29] MEDS: Metoprolol XL (24 HR) Succ 50 MG TAB.ER.24H PO SCH (08:12)
[2022-06-29] MEDS: Aspirin Enteric Coated 81 MG Tablet PO SCH (08:12)
[2022-06-29] MEDS: Apixaban 2.5 MG TABLET PO SCH ×2 (08:12→20:56)
[2022-06-30] MEDS: Carbamide Peroxide 150 DROP/15 ML BOTTLE LEFT EAR SCH (05:36)
[2022-06-30] MEDS: Carbamide Peroxide 150 DROP/15 ML BOTTLE RIGHT EAR SCH (05:36)
[2022-06-30] MEDS: Aspirin Enteric Coated 81 MG Tablet PO SCH (08:56)
[2022-06-30] MEDS: Apixaban 2.5 MG TABLET PO SCH ×2 (08:56→20:22)
[2022-06-30] MEDS: Metoprolol XL (24 HR) Succ 50 MG TAB.ER.24H PO SCH (08:56)
[2022-07-01] MEDS: Aspirin Enteric Coated 81 MG Tablet PO SCH (08:23)
[2022-07-01] MEDS: Apixaban 2.5 MG TABLET PO SCH ×2 (08:23→19:59)
[2022-07-01] MEDS: Metoprolol XL (24 HR) Succ 50 MG TAB.ER.24H PO SCH (08:23)
[2022-07-02 06:07] VITALS: BP 129/82; PULSE 64; RESP 16; TEMP 97.8; O2SAT 97
[2022-07-02] MEDS: Metoprolol XL (24 HR) Succ 50 MG TAB.ER.24H PO SCH (08:52)
[2022-07-02] MEDS: Aspirin Enteric Coated 81 MG Tablet PO SCH (08:52)
[2022-07-02] MEDS: Apixaban 2.5 MG TABLET PO SCH (08:52)
== END 2022-07-02 15:45 | disposition home health service (06) | DRG 177 ==
LOC: INPGRE 21:37
PROVIDERS: ADMIT Family Medicine; ATTEND Family Medicine